=== PATIENT | female | born 1945 | race Caucasian/White ===

== ENCOUNTER 2019-08-05 09:57 | Outpatient (CLI) | payer MEDICARE, OTHER, SELFPAY ==
--- NOTE | 2019-08-05 10:03 | FL_ITS ---
WS: [id number] FL barium swallow modifd 24951 REASON FOR EXAM: Other dysphagia FLUOROSCOPY TIME: 3.5 minutes FINDINGS: Fluoroscopy was performed for speech pathologist. We see their workup for details. In the mid esophagus there appears to be thickening of the lamas of the esophagus and appears to be e sophageal ulcer present. 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
== END 2019-08-05 09:58 | disposition home or self-care (01) ==
LOC: RAD 09:58
PROVIDERS: PCP Family Medicine; Visit Provider Surgery
DX: R13.19 Other dysphagia (principal)
CPT/HCPCS: 74230; 92611

== ENCOUNTER 2019-08-06 08:47 | Day surgery (SDC) | payer MEDICARE, OTHER, SELFPAY ==
[2019-08-05 11:12] VITALS: BMI 24.3
[2019-08-06 09:27] VITALS: BP 138/67; PULSE 58; RESP 18; TEMP 36.8; O2SAT 99
[2019-08-06] MEDS: sodium chloride 0.9% 1,000 ML 30 ML IV (09:48)
--- NOTE | 2019-08-06 09:50 | ANES.PREANE2 ---
Pre-Anesthetic Assessment Pre-Anesthetic Assessment: Height/Weight: Height 1.7 m Weight 70.307 kg Temp Pulse Resp BP Pulse Ox 98.2 F 58 L 18 138/67 99 08/06/19 09:27 08/06/19 09:27 08/06/19 09:27 08/06/19 09:27 08/06/19 09:27 Preop Diagnosis: Epigastric pain and chronic GERD Proposed Procedure: Operation Date: 08/06/19 10:30 Proposed Procedures p EGD 10070 K21.9(Not Applicable) - Tanner Wilkinson MD Last intake: Intake Last Liquid Date 08/05/19 Last Liquid Time 20:00 Last Solid Date 08/05/19 Last Solid Time 20:00 Social: Social History: No alcohol and No tobacco Exam: Pre-Anes Outpt Exam: alert, oriented x 3, clear to auscultation bilaterally and regular rate & rhythm Airway: Submandibular: WNL Cervical ROM: Other (very limited) MP: 2 Dentition: Other (teeth good) History/ROS: No significant history except as noted Pulmonary: Pulmonary: None reported CV/HEM: CV/HEM: HTN : : None reported Hepatic: Hepatic: None reported GI: GI: GERD Metabolic: Metabolic: None reported Musc/skel: Musc/skel: Lower Back Pain and OA/DJD Neuropsych: Comments: olvin rivera Anesthetic Plan: ASA status: 3 Anesthesia: Anesthesia Evaluation and MAC Risk of > 500 ml blood loss (7ml/kg in children): No Meds/Allergies Current Medications: Current Medications Generic Name Dose Route Start Last Admin Trade Name Freq PRN Reason Stop Dose Admin Sodium Chloride 1,000 mls @ 30 ml s/hr 08/06/19 09:15 08/06/19 09:48 Sodium Chloride 0.9% IV 08/07/19 09:14 30 mls/hr .Q24H ORION Administration PFSH Anesthesia PFSH: Medical History Atrial fibrillation Chronic GERD Depression Dyspepsia Dysphagia Epigastric pain History of basal cell carcinoma (BCC) of skin Hypertension Surgical History H/O colonoscopy 2013 History of carpal tunnel release History of hysterectomy History of left knee replacement History of repair of rotator cuff Family History Father CAD (coronary artery disease) Brother CAD (coronary artery disease) Cancer 3 brothers-2 lung-1 small intestine Mother Hypertension Kidney stones Social History Smoking and tobacco status: never smoked Alcohol intake: never Data Anesthesia Cardiac Studies: No Data to Display
--- NOTE | 2019-08-06 11:18 | W.PM.OPSUD ---
Surgery/Procedure H&P Update DATE OF PROCEDURE: August 06, 2019 DATE H&P PERFORMED: 08/05/19 H&P UPDATE INFORMATION: I have reviewed H&P completed within last 30 days, I have examined patient prior to procedure and Changes to prior documentation as noted here (FINDINGS: Fluoroscopy was performed for speech pathologist. We see their workup for details. In the mid esophagus there appears to be thickening of the lamas of the esophagus and appears to be esophageal ulcer present. FL/FL barium swallow modifd [id number] IMPRESSION: Suspe) PREOP DIAGNOSIS: Epigastric pain and chronic GERD PRIMARY INDICATION FOR PROCEDURE: The same PLANNED PROCEDURE: Operation Date: 08/06/19 10:30 Proposed Procedures p EGD 46290 K21.9(Not Applicable) - Tanner Wilkinson MD
[2019-08-06 11:32] VITALS: BP 136/80; PULSE 68; RESP 16; TEMP 36.6; O2SAT 99
--- NOTE | 2019-08-06 11:35 | ANE.PACU2 ---
Inpatient post-anesthesia follow up: Airway intact: Yes Vital signs: Temperature 97.9 F Pulse Rate 68 Respiratory Rate 16 Blood Pressure 136/80 Pulse Oximetry 99 Oxygen Delivery Me thod Nasal Cannula Oxygen Flow Rate 3.0 Fraction of Inspir ed Oxygen Hydration adequate: Yes Nausea and vomiting: No Pain level: 1
[2019-08-07 09:02] LABS: H. Pylori / CLO Test Positive
== END 2019-08-06 11:55 | disposition home or self-care (01) ==
PROVIDERS: PCP Family Medicine; Visit Provider Surgery
PROC: 0DJ08ZZ Inspection of Upper Intestinal Tract, Via Natural or Artificial Opening Endoscopic (ICD-10-PCS; CPT 43235; principal; 2019-08-06 10:30)
DX: R10.13 Epigastric pain (principal); K21.9 Gastro-esophageal reflux disease without esophagitis; K29.70 Gastritis, unspecified, without bleeding; I10 Essential (primary) hypertension; M19.90 Unspecified osteoarthritis, unspecified site; I48.91 Unspecified atrial fibrillation
CPT/HCPCS: 12345; 43239; 87077; J2704

== ENCOUNTER 2019-08-11 08:36 | Outpatient (CLI) | payer MEDICARE, OTHER, SELFPAY ==
--- NOTE | 2019-08-11 08:45 | US_ITS ---
WS: [id number] RIGHT UPPER QUADRANT ULTRASOUND HISTORY: dyspepsia COMPARISON: None available. Liver: 13.4 cm in length. Normal size and echogenicity with no intrahepatic dilatation. No mass. Gallbladder: Normally distended gallbladder with no stones or wall thickening. CBD: 0.2 cm Pancreas: Normal size and echogenicity. Right kidney: 10.0 cm in length. Normal echogenicity with no mass or hydronephrosis. Aorta and IVC: Unremarkable. No ascites. US/US gall bladder [id number] IMPRESSION: Normal RIGHT upper quadrant ultrasound.
== END 2019-08-11 08:37 | disposition home or self-care (01) ==
LOC: US 08:37
PROVIDERS: PCP Family Medicine; Visit Provider Surgery
DX: R10.13 Epigastric pain (principal)
CPT/HCPCS: 76705

== ENCOUNTER 2019-09-04 07:18 | Outpatient (CLI) | payer MEDICARE, OTHER, SELFPAY ==
--- NOTE | 2019-09-04 08:00 | NM_ITS ---
WS: [id number] NUCLEAR MEDICINE HIDA SCAN CLINICAL INFORMATION: ABDOMINAL PAIN TECHNIQUE: Following intravenous administration of 7.9 mCi of technetium 99m mebrofenin, images of th e abdomen were obtained over the course of 60 minutes. Next, gallbladder ejection fraction was determ ined by obtaining preprandial and one-hour postprandial images of the gallbladder following oral zayra stion of Ensure. COMPARISON: None. FINDINGS: Normal hepatic uptake at 5 minutes. Gallbladder is visualized by 20 minutes. Normal hepatic excretion . No evidence of acute cholecystitis. Gallbladder ejection fraction 80% within normal limits. No evidence of chronic cholecystitis. NM/NM hepatobiliary w phar* [id number] IMPRESSION: 1. No evidence of acute or chronic cholecystitis. 2. Gallbladder ejection fraction 80%.
== END 2019-09-04 07:19 | disposition home or self-care (01) ==
PROVIDERS: PCP Family Medicine; Visit Provider Surgery
DX: R10.9 Unspecified abdominal pain (principal)
CPT/HCPCS: 78227; A9537

== ENCOUNTER → 2019-10-28 11:49 | Outpatient (BNVA) | payer MEDICARE, OTHER, SELFPAY | PROVIDERS: PCP Family Medicine; Visit Provider Nurse Practitioner Family | DX: U07.1 COVID-19 (principal) | CPT/HCPCS: 87635 ==

== ENCOUNTER 2021-07-24 23:20 | Emergency (ER) | payer OTHER, MEDICARE, SELFPAY ==
[2021-07-24 23:29] VITALS: BP 145/79; PULSE 81; RESP 16; TEMP 36.6; O2SAT 97; BMI 25.0
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
--- NOTE | 2021-07-25 00:01 | USR_ITS ---
PROCEDURE INFORMATION: Exam: US Duplex Left Lower Extremity Veins, Limited Exam date and time: 07/25/2021 12:08 AM Age: 76 years old Clinical indication: Pain; Swelling (edema) of limb; Lower extremity, left; Leg, lower; Prior surgery; Surgery date: 6+ months; Surgery type: Vascular reconstruction; Additional info: R/O dvt TECHNIQUE: Imaging protocol: Real-time Duplex ultrasound of the Left Lower Extremity with 2-D gonzalez scale, color Doppler flow and spectral waveform analysis with image documentation. Limited exam focused on the left lower extremity veins. COMPARISON: No relevant prior studies available. FINDINGS: Left deep veins: Unremarkable. The common femoral, femoral, proximal profunda femoral and popliteal veins are patent without thrombus. Normal Doppler waveforms. Normal compressibility and/or augmentation response. Patent calf veins. Left superficial veins: Unremarkable. Saphenofemoral junction is patent without thrombus. Distal great saphenous vein not visible. Possibly removed. Soft tissues: Unremarkable. US/CV venous duplex [facility] [id number] IMPRESSION: No evidence of left lower extremity deep vein thrombosis.
--- NOTE | 2021-07-25 00:51 | XRR_ITS ---
PROCEDURE INFORMATION: Exam: XR Chest Exam date and time: 07/25/2021 12:53 AM Age: 76 years old Clinical indication: Cough; Additional info: Cough, congestion TECHNIQUE: Imaging protocol: XR of the chest. Views: 1 view. COMPARISON: CT chest con [id number] 07/23/2017 3:14 PM FINDINGS: Lungs: Unremarkable. No consolidation. Pleural spaces: Unremarkable. No pleural effusion. No pneumothorax. Heart/Mediastinum: Unremarkable. No cardiomegaly. Bones/joints: Unremarkable. XR/XR chest 1V portable [id number] IMPRESSION: No acute findings.
[2021-07-25 01:42] VITALS: BP 130/82; PULSE 83; RESP 18; O2SAT 98
== END 2021-07-25 01:44 | disposition home or self-care (01) ==
PROVIDERS: Emergency Provider Nurse Practitioner Family; PCP Family Medicine
DX: M79.605 Pain in left leg (principal); M79.89 Other specified soft tissue disorders; Z98.890 Other specified postprocedural states; Z79.01 Long term (current) use of anticoagulants
CPT/HCPCS: 71045; 73552; 73590; 93971; 99283

== ENCOUNTER 2021-07-31 09:18 | Emergency (ER) | payer OTHER, MEDICARE, SELFPAY ==
[2021-07-31 09:25] VITALS: BP 126/89; PULSE 76; RESP 16; TEMP 36.6; O2SAT 97; BMI 25.0
--- NOTE | 2021-07-31 09:39 | XRR_ITS ---
PROCEDURE INFORMATION: Exam: XR Chest Exam date and time: 07/31/2021 9:54 AM Age: 76 years old Clinical indication: Cough; Additional info: Dyspnea/cough TECHNIQUE: Imaging protocol: XR of the chest. Views: 1 view. COMPARISON: CR (CHEST, ) 07/25/2021 12:53 AM FINDINGS: Lungs: Mild fibrotic changes are present in the lung bases. No acute pulmonary infiltrates. Pleural spaces: Unremarkable. No pleural effusion. No pneumothorax. Heart/Mediastinum: Unremarkable. No cardiomegaly. Bones/joints: Unremarkable. XR/XR chest 1V portable [id number] IMPRESSION: No acute abnormality.
--- NOTE | 2021-07-31 09:39 | CTR_ITS ---
PROCEDURE INFORMATION: Exam: CT Head Without Contrast Exam date and time: 07/31/2021 9:58 AM Age: 76 years old Clinical indication: Dizziness and visual disturbance and weakness, facial TECHNIQUE: Imaging protocol: Computed tomography of the head without contrast. Radiation optimization: All CT scans at this facility use at least one of these dose optimization techniques: automated exposure control; mA and/or kV adjustment per patient size (includes targeted exams where dose is matched to clinical indication); or iterative reconstruction. COMPARISON: XA FL barium swallow modifd [id number] 08/05/2019 10:30 AM RADIATION DOSE METRICS: Total DLP (mGy-cm): 734.23 FINDINGS: Brain: Normal. No hemorrhage. Unremarkable white matter. No mass effect. Cerebral ventricles: No ventriculomegaly. Paranasal sinuses: Visualized sinuses are unremarkable. No fluid levels. Mastoid air cells: Visualized mastoid air cells are well aerated. Bones/joints: Unremarkable. No acute fracture. Soft tissues: Unremarkable. CT/CT head wo con* [id number] IMPRESSION: No acute intracranial abnormality.
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
--- NOTE | 2021-07-31 10:26 | ECG_ITS ---
[facility] Test Date: 2021-07-31 Pat Name: Kacy Arroyo Department: Room: Gender: Female Seam Stay Stitcher: : 1945 Requested By: Andrews Liu Order Number: [id number] Syed MD: Dave Christianson M.D. Measurements Intervals [place] Rate: 69 P: 63 [place]: 171 QRS: 55 QRSD: 81 T: 65 QT: 370 QTc: 399 Interpretive Statements SINUS RHYTHM POSSIBLE RIGHT VENTRICULAR CONDUCTION DELAY [RSR (QR) IN V1/V2] Compared to ECG 04/02/2015 10:33:31 Incomplete right bundle-branch block no longer present Electronically Signed On 07-31-2021 21:13:09 CDT by Dave Christianson M.D. [email or web address] centerIsis Parentingselect medical specialty [facility], inc.[employer]/store/[id number]
[2021-07-31 10:33] LABS: Basophils # 0.1 10^3/uL (0.0-0.1); Basophils % 0.7 %; Eosinophils # 0.1 10^3/uL (0.0-0.8); Eosinophils % 1.5 %; Hematocrit 28.2 % (37.0-47.0); Lymphocytes # 0.7 10^3/uL (0.8-4.8); Lymphocytes % 10.6 %; Mean Corpuscular HGB Conc 31.9 g/dL (30.0-36.0); Mean Corpuscular Hemoglobin 30.4 pg (28.0-34.0); Mean Corpuscular Volume 95.3 fl (81-99); Mean Platelet Volume 10.3 fL (7.4-10.4); Monocytes # 0.7 10^3/uL (0.2-0.9); Monocytes % 10.5 %; Neutrophils # 5.09 10^3/uL (1.8-7.7); Neutrophils % 76.3 %; Nucleated Red Blood Cells % 0 %; Platelet Count 453 10^3/cmm (130-400); Red Blood Count 2.96 10^6/uL (4.1-5.3); Red Cell Distribution Width 14.2 % (12.1-15.1); White Blood Count 6.7 10^3/uL (4.0-10.0)
[2021-07-31 10:55] VITALS: BP 117/61; PULSE 75; RESP 16; O2SAT 100
--- NOTE | 2021-07-31 11:00 | PC.NURSE ---
EKG done at 1050 and shown to ER doctor
[2021-07-31 11:01] LABS: Alanine Aminotransferase 8 U/L (0-33); Albumin Level 3.6 g/dL (3.5-5.2); Alkaline Phosphatase 121 IU/L (35-105); Aspartate Amino Transferase 18 U/L (0-32); Blood Urea Nitrogen 21 mg/dL (8-23); Calcium 8.7 mg/dL (8.5-10.5); Carbon Dioxide 23 mmol/L (22-29); Chloride 101 mmol/L (98-107); Globulin 3.3 g/dL (1.3-4.6); Glucose 94 mg/dL (65-115); Osmolality Calculated 287 mOsm/kg (285-295); Sodium 137 mmol/L (136-145); Total Bilirubin 0.6 mg/dL (0.15-1.2); Total Protein 6.9 g/dL (6.6-8.7)
[2021-07-31 11:07] LABS: Anion Gap 17.2 (5-19); Potassium 4.2 mmol/L (3.5-5.1)
[2021-07-31 11:20] LABS: Add Urine Microscopic? NO; Charge for UA Resulting for Rev
[2021-07-31 11:34] LABS: Specific Gravity, Urine 1.015 (1.005-1.030); Urine Appearance Clear (CLEAR); Urine Color Yellow (Yellow); pH Urine 6 (5-7)
[2021-07-31 11:35] LABS: Bilirubin Urine Neg (Negative); Blood Urine Neg (Negative); Glucose Urine UA Norm (Normal); Ketones Urine Negative (Negative); Leukocyte Esterase Urine Negative (Negative); Nitrate Urine Negative (Negative); Protein Urine Neg (Negative); Urobilinogen Urine Norm (Negative)
[2021-07-31 12:30] VITALS: BP 115/71; BP 126/53; BP 129/62; PULSE 104; PULSE 75; PULSE 96
[2021-07-31 13:16] VITALS: BP 138/52; PULSE 75; RESP 17; O2SAT 98
== END 2021-07-31 13:17 | disposition home or self-care (01) ==
PROVIDERS: Emergency Provider Family Medicine; PCP Family Medicine
DX: R53.1 Weakness (principal); D64.9 Anemia, unspecified; H53.9 Unspecified visual disturbance; S72.92XD Unspecified fracture of left femur, subsequent encounter for closed fracture with routine healing; V89.2XXD Person injured in unspecified motor-vehicle accident, traffic, subsequent encounter; Z79.82 Long term (current) use of aspirin; Z79.01 Long term (current) use of anticoagulants; Z98.890 Other specified postprocedural states
CPT/HCPCS: 70450; 71045; 80053; 81003; 85025; 93005; 99284

== ENCOUNTER → 2021-08-25 12:46 | Outpatient (BNVA) | payer MEDICARE, OTHER, SELFPAY | PROVIDERS: PCP Family Medicine; Visit Provider Family Medicine | DX: I95.9 Hypotension, unspecified (principal); R53.83 Other fatigue; E34.9 Endocrine disorder, unspecified | CPT/HCPCS: 80053; 83880; 85025; 85651; 86140 ==

== ENCOUNTER → 2021-09-19 09:33 | Outpatient (BNVA) | payer MEDICARE, OTHER, SELFPAY | PROVIDERS: PCP Family Medicine; Visit Provider Family Medicine | DX: K21.9 Gastro-esophageal reflux disease without esophagitis (principal); R50.9 Fever, unspecified; R13.10 Dysphagia, unspecified; E34.9 Endocrine disorder, unspecified; Z20.828 Contact with and (suspected) exposure to other viral communicable diseases; Z85.828 Personal history of other malignant neoplasm of skin | CPT/HCPCS: 84703 ==

== ENCOUNTER 2021-10-17 10:44 | Outpatient (CLI) | payer MEDICARE, OTHER, SELFPAY ==
--- NOTE | 2021-10-17 10:52 | MM_ITS ---
WS: [id number] BILATERAL SCREENING DIGITAL TOMOSYNTHESIS MAMMOGRAM WITH CAD HISTORY: SCREENING COMPARISON: 04/13/2017 and 05/19/2015 Bilateral CC and MLO views with tomosynthesis and synthetic mammography submitted. Computer aided det ection analyzed. Breast composition: The breasts are heterogeneously dense, which may obscure small masses. No suspici ous masses, microcalcifications or architectural distortion. Benign coarse calcifications in each dmitriy ast. MM/[place] [id number] IMPRESSION: BI-RADS: 2-Benign FOLLOW UP: 1 Year Follow-up
== END 2021-10-17 10:45 | disposition home or self-care (01) ==
PROVIDERS: PCP Family Medicine; Visit Provider Family Medicine
DX: Z12.31 Encounter for screening mammogram for malignant neoplasm of breast (principal)
CPT/HCPCS: 77063; 77067

== ENCOUNTER 2021-10-25 11:31 | Outpatient (CLI) | payer MEDICARE, OTHER, SELFPAY ==
--- NOTE | 2021-10-25 11:30 | FL_ITS ---
WS: [id number] MODIFIED BARIUM SWALLOW HISTORY: Other dysphagia FLUOROSCOPY TIME: 1min [id number] # of spot films: 1 Modified barium swallow was performed by the speech pathologist. Fluoroscopy was provided with the pa tient in a lateral projection. Multiple food consistencies were provided. Patient swallowed all food consistencies without difficulty. No aspiration or laryngeal penetration. Barium tablet was swallowed without difficulty. FL/FL barium swallow modifd [id number] IMPRESSION: Negative modified swallowing examination. Please see speech therapist report also for recommendations.
== END 2021-10-25 11:32 | disposition home or self-care (01) ==
LOC: RAD 11:32
PROVIDERS: PCP Family Medicine; Visit Provider Family Medicine
DX: R13.10 Dysphagia, unspecified (principal)
CPT/HCPCS: 74230; 92611

== ENCOUNTER 2021-10-26 07:30 | Outpatient (RCR) | payer MEDICARE, OTHER, SELFPAY | END 2021-11-18 23:59 | disposition home or self-care (01) | LOC: SPT 07:30 | PROVIDERS: PCP Family Medicine; Visit Provider Student in an Organized Health Care Education/Training Program | DX: M97.02XA Periprosthetic fracture around internal prosthetic left hip joint, initial encounter (principal); M21.372 Foot drop, left foot; Z47.89 Encounter for other orthopedic aftercare | CPT/HCPCS: 97032; 97110; 97161 ==

== ENCOUNTER 2021-11-19 06:00 | Outpatient (RCR) | payer MEDICARE, OTHER, SELFPAY | END 2021-12-19 23:59 | disposition home or self-care (01) | LOC: SPT 06:00 | PROVIDERS: PCP Family Medicine; Visit Provider Student in an Organized Health Care Education/Training Program | DX: M21.372 Foot drop, left foot (principal); Z47.89 Encounter for other orthopedic aftercare; Z96.652 Presence of left artificial knee joint | CPT/HCPCS: 97032; 97110; 97116 ==

== ENCOUNTER 2021-12-20 06:00 | Outpatient (RCR) | payer MEDICARE, OTHER, SELFPAY | END 2022-01-18 23:59 | disposition home or self-care (01) | LOC: SPT 06:00 | PROVIDERS: PCP Family Medicine; Visit Provider Student in an Organized Health Care Education/Training Program | DX: M21.372 Foot drop, left foot (principal) | CPT/HCPCS: 97110; 97116 ==

== ENCOUNTER 2021-12-21 16:25 | Outpatient (CLI) | payer MEDICARE, OTHER, SELFPAY ==
--- NOTE | 2021-12-21 17:00 | CT_ITS ---
WS: [id number] CT scan of the chest without IV contrast, additional two-dimensional coronal and sagittal reconstruct ion was performed. 12/21/2021 Clinical Data: f/u on lymphadenopath from CT 3 months ago at [facility] Comparison: CT chest, 07/23/2017 DLP: 612.[address] scans at [facility] use at least one of these dose optimization techniques: automated e xposure control; mA and/or kV adjustment per patient size (includes targeted exams where dose is matc hed to clinical indication); or iterative reconstruction. Findings: No nodules, masses or effusions are seen. No acute pneumonia is seen. The lower lobes show bullous em physema. There is hyperinflation. The heart size is normal with no pericardial effusion. The pulmonar y arterial system and thoracic aorta demonstrate no abnormalities or dilatations. The trachea bifurca manjinder normally into the bronchi. There is no axillary or significant mediastinal adenopathy. The middle mediastinal lymph nodes have not changed in size or number compared to the prior CT chest. The upper abdomen has not changed from the prior study. There are cysts in the liver. The visualized gallbladder, spleen, pancreas, adrenal glands and superior poles of the kidneys are not remarkable. T he thoracic spine shows mild osteoarthritic change CT/CT chest wo con [id number] Impression: 1. Hyperinflation with lower lobe bullous emphysema. 2. No significant mediastinal or axillary adenopathy.
== END 2021-12-21 16:26 | disposition home or self-care (01) ==
LOC: RAD 16:26
PROVIDERS: PCP Family Medicine; Visit Provider Family Medicine
DX: R59.1 Generalized enlarged lymph nodes (principal); J43.9 Emphysema, unspecified
CPT/HCPCS: 71250

== ENCOUNTER 2022-01-19 06:00 | Outpatient (RCR) | payer MEDICARE, OTHER, SELFPAY | END 2022-02-06 16:07 | disposition home or self-care (01) | LOC: SPT 06:00 | PROVIDERS: PCP Family Medicine; Visit Provider Student in an Organized Health Care Education/Training Program | DX: Z96.652 Presence of left artificial knee joint (principal); Z47.89 Encounter for other orthopedic aftercare; M21.372 Foot drop, left foot | CPT/HCPCS: 97110 ==

== ENCOUNTER 2022-02-19 06:00 | Outpatient (RCR) | payer MEDICARE, OTHER, SELFPAY | END 2022-03-21 23:59 | disposition home or self-care (01) | LOC: SPT 06:00 | PROVIDERS: PCP Family Medicine; Visit Provider Student in an Organized Health Care Education/Training Program | DX: S72.042D Displaced fracture of base of neck of left femur, subsequent encounter for closed fracture with routine healing (principal); X58.XXXD Exposure to other specified factors, subsequent encounter; R53.1 Weakness; R26.89 Other abnormalities of gait and mobility | CPT/HCPCS: 97110; 97161 ==

== ENCOUNTER 2022-03-22 06:00 | Outpatient (RCR) | payer MEDICARE, OTHER, SELFPAY | END 2022-04-18 23:59 | disposition home or self-care (01) | LOC: SPT 06:00 | PROVIDERS: PCP Family Medicine; Visit Provider Student in an Organized Health Care Education/Training Program | DX: S72.042D Displaced fracture of base of neck of left femur, subsequent encounter for closed fracture with routine healing (principal); X58.XXXD Exposure to other specified factors, subsequent encounter | CPT/HCPCS: 97110; 97150; 97530 ==

== ENCOUNTER 2022-04-19 06:00 | Outpatient (RCR) | payer MEDICARE, OTHER, SELFPAY | END 2022-05-04 23:59 | disposition home or self-care (01) | LOC: SPT 06:00 | PROVIDERS: PCP Family Medicine; Visit Provider Student in an Organized Health Care Education/Training Program | DX: S72.042D Displaced fracture of base of neck of left femur, subsequent encounter for closed fracture with routine healing (principal); X58.XXXD Exposure to other specified factors, subsequent encounter; R53.1 Weakness; R26.89 Other abnormalities of gait and mobility | CPT/HCPCS: 97110 ==

== ENCOUNTER 2022-05-23 16:12 | Inpatient (IN) | payer MEDICARE, OTHER, SELFPAY ==
[2022-05-23] VITALS (8 sets, daily range): BP systolic 135–210; BP diastolic 55–136; PULSE 64–76; RESP 13–18; TEMP 36.8; O2SAT 99–100; BMI 24.3
--- NOTE | 2022-05-23 16:20 | W.ED.FALL ---
HPI - Fall General: Chief Complaint: Fall Stated Complaint: FALL/ R ARM DEFORMITY Time Seen by Provider: 05/23/22 16:20 Source: patient Mode of arrival: EMS History of Present Illness: 77-year-old female who presents to the emergency room complaining of shoulder pain after a fall. Patient had gotten up from a chair and stumbled and fell forward landed on an outstretched right arm. She had immediate pain was unable to move the arm EMS was called and left the arm in a position of comfort. I confirmed with the medic in the field they had good pulses and she was able to move her fingers. When I came into the room she had a cold pulseless arm it was in the same position that the medics had left it suspect that the swelling in the intermediate had compromised her pulse. We emergently sedated the patient and attempted reduction see the notes below. She denies striking her head denies any other injuries besides the arm. She is not on any anticoagulants. She does take an aspirin daily. complaint: fall Onset (ago): minute(s) Fall from: standing Place fall occurred: home Loss of consciousness: None Prolonged down time: no Location of injury - extremities: Right: shoulder Quality: sharp Associated symptoms-after fall: Denies abdominal pain, chest pain, headache(s), lightheadedness, neck pain, numbness, short of breath or weakness Review of Systems Const: Denies: fever(s), chills, body aches, change in appetite, fatigue or malaise Card: Denies: chest pain or lightheadedness Resp: Denies: dyspnea, productive cough or non-productive cough GI: Denies: abdominal pain, nausea or vomiting : Denies: dysuria, urinary frequency or urinary urgency Musc: Denies: neck pain or back pain Neuro: Reports: numbness in extremities; Denies: headache(s), frequent falls or Slurred speech present PFS ED PFSH: Medical History (Updated 05/24/22 @ 11:48 by Andrews Guevara DO) Atrial fibrillation Chronic GERD Depression Dyspepsia Dysphagia Epigastric pain History of basal cell carcinoma (BCC) of skin History of nonmelanoma skin cancer Hypertension Surgical History (Updated 05/23/22 @ 20:58 by Chey Boo MD) H/O colonoscopy 2013 History of carpal tunnel release History of colonoscopy with polypectomy (~08/2019) History of esophagogastroduodenoscopy (EGD) (~08/2019) History of esophagogastroduodenoscopy (EGD) (~2013) History of hysterectomy History of left knee replacement History of repair of rotator cuff Family History Father CAD (coronary artery disease) Brother CAD (coronary artery disease) Cancer 3 brothers-2 lung-1 small intestine Mother Hypertension Kidney stones Social History Smoking and tobacco status: never smoked Alcohol intake: never Physical Exam Const: COMMON NORMALS: no acute distress GENERAL APPEARANCE: cooperative and comfortable ORIENTATION/CONSCIOUSNESS: Yes awake, Yes oriented to person, Yes oriented to place and Yes oriented to time HENMT: COMMON NORMALS: normocephalic, atraumatic and hearing grossly normal bilaterally HEAD & SCALP: normocephalic and atraumatic Resp: COMMON NORMALS: normal respiratory effort, No retractions, No use of accessory muscles and clear to auscultation bilaterally AUSCULTATION: clear to auscultation bilaterally Cardio: COMMON NORMALS: regular rate, regular rhythm and No murmurs present (Cardio) RATE: regular rate RHYTHM: regular rhythm GI: COMMON NORMALS: Soft to palpation and No hepatosplenomegaly present AUSCULTATION: Yes normoactive bowel sounds PALPATION: Yes Soft to palpation, No Tenderness to palpation present (GI), No Guarding due to palpation present (GI) and Yes No hepatosplenomegaly present Extremity: OTHER: Right arm is in AB ducted and externally rotated position when I arrived in the room the hand is cyanotic and there are no pulses at radial or ulnar arteries. See notes below after etomidate for conscious sedation arm was reduced in anatomical position and had good relief return of pulses and capillary refill cyanosis resolved. Neuro: SENSORIUM/ORIENTATION: Yes oriented to person, Yes oriented to place and Yes oriented to time Skin: COMMON NORMALS: no rashes or lesions noted GENERAL SKIN EXAM: no rashes or lesions noted Procedures Orthopedic Joint Reduction Joint #1: Time Out Performed: Yes Side: right Joint Reduction Location: shoulder Analgesia: procedural sedation Shoulder Technique Used (if applicable): traction/counter-traction Technique used: traction/counter-traction Post-reduction neuro exam: intact Post-reduction vascular: intact Post Reduction X-Ray Obtained: Yes Post Reduction X-Ray Results: not reduced Splint Applied: Yes Patient Tolerated Procedure: well Additional Comments: Fracture at the anatomical neck. The head of the humerus and the shaft are now after attempt to reduce. Humeral head is still out of position see notes below Procedural Sedation Indication: fracture/dislocation reduction ASA Class: I Preparation: monitoring tech applied, pulse oximeter, supplemental O2 applied, suction/airway equipment at bedside and IV secured Fentanyl: IV Fentanyl dose (mcg): 50 Midazolam dose (mg): 2 (Patient given 2.5 mg EMR will not allow that) IV Etomidate dose (mg): 10 Patient Tolerated Procedure: well Complications: hypoxia Interventions: oxygen applied and airway repositioned Additional Comments: Verbal consent at the bedside obtained because patient had a pulseless cold limb. Patient gave verbal consent with nurse present. Initially given etomidate were able to reduce and achieve pulses. Then proceeded with fentanyl and Versed to attempt to reduce the dislocation. See notes Course Vital Signs: Vital signs: Vital Signs Temperature 98.3 F 05/24/22 08:28 Pulse Rate 69 05/24/22 08:28 Respiratory Rate 18 05/24/22 11:29 Blood Pressure 169/71 05/24/22 08:28 Pulse Oximetry 99 05/24/22 08:28 Oxygen Delivery Me thod 05/24/22 08:28 Oxygen Flow Rate 2 05/24/22 08:00 MDM - Fall Medical Decision Making When she first arrived she had a pulseless cold limb with no capillary refill confirmed with the medics initially in the field she did have pulses. Patient had increasing pain and discomfort verbal consent obtained for conscious sedation. The patient agreed. Etomidate given 10 mg were able to move the arm to an anatomical position which immediately returned her pulses and capillary refill. X-ray was done confirmed showed anatomical neck fracture and distal anterior dislocation. Patient developed some transient hypoxia which was resolved with airway repositioning. Once she had improved she was given Versed and fentanyl which she tolerated well and we attempted to apply traction countertraction to reduce the fracture. Unable to reduce the fracture. We did feel like we might of gotten it however on repeat x-ray it shows that the humeral shaft and the humeral head are no longer in position with each other. Discussed with Dr. Tapia. Patient will require shoulder arthroplasty. Medical Records I reviewed the patient's medical records. Lab Data I reviewed the patient's lab results. 05/24/22 05:29 05/24/22 05:29 Radiology Impressions Shoulder X-Ray 05/23/22 16:47 IMPRESSION: Right glenohumeral joint dislocation with complete fracture through the abdomen neck of the humerus with displacement of the articular surface of the humeral head. Additional comminuted fracture of the greater tuberosity humerus and probable nondisplaced fracture through the surgical neck of the humerus are noted. Chest X-Ray 05/23/22 17:55 IMPRESSION: 1. Mild bibasilar opacity is present, consistent with atelectasis, edema, or pneumonia. 2. Comminuted fracture of the proximal right humerus with dislocation of the right humeral head is again identified. Laboratory Results WBC 10.4 10^3/uL (4.0-10.0) H 05/23/22 18:07 RBC 4.09 10^6/uL (4.1-5.3) L 05/23/22 18:07 Hgb 12.3 g/dL (11.5-15.3) 05/23/22 18:07 Hct 38.4 % (37.0-47.0) 05/23/22 18:07 MCV 93.9 fl (81-99) 05/23/22 18:07 MCH 30.1 pg (28.0-34.0) 05/23/22 18:07 MCHC 32.0 g/dL (30.0-36.0) 05/23/22 18:07 RDW 12.7 % (12.1-15.1) 05/23/22 18:07 Plt Count 212 10^3/cmm (130-400) 05/23/22 18:07 MPV 9.8 fL (7.4-10.4) 05/23/22 18:07 Neut % (Auto) 85.3 % 05/23/22 18:07 Lymph % (Auto) 6.4 % 05/23/22 18:07 [place] % (Auto) 6.9 % 05/23/22 18:07 Eos % (Auto) 0.2 % 05/23/22 18:07 Baso % (Auto) 0.6 % 05/23/22 18:07 Neut # (Auto) 8.88 10^3/uL (1.8-7.7) H 05/23/22 18:07 Lymph # (Auto) 0.7 10^3/uL (0.8-4.8) L 05/23/22 18:07 [place] # (Auto) 0.7 10^3/uL (0.2-0.9) 05/23/22 18:07 Eos # (Auto) 0.0 10^3/uL (0.0-0.8) 05/23/22 18:07 Baso # (Auto) 0.1 10^3/uL (0.0-0.1) 05/23/22 18:07 Nucleated RBC % (auto) 0 % 05/23/22 18:07 Nucleated RBCs # 0.0 /100WBC 05/23/22 18:07 Sodium 142 mmol/L (136-145) 05/23/22 18:07 Potassium 3.8 mmol/L (3.5-5.1) 05/23/22 18:07 Chloride 103 mmol/L (98-107) 05/23/22 18:07 Carbon Dioxide 28 mmol/L (22-29) 05/23/22 18:07 Anion Gap 14.8 (5-19) 05/23/22 18:07 BUN 16 mg/dL (8-23) 05/23/22 18:07 Creatinine 0.8 mg/dL (0.5-0.9) 05/23/22 18:07 GFR Calculation Not Reportable 05/23/22 18:07 Glucose 117 mg/dL (65-115) H 05/23/22 18:07 Estimat Average Glucose 100 05/23/22 18:07 Hemoglobin A1c 5.1 % (4.0-6.0) 05/23/22 18:07 Calculated Osmolality 296 mOsm/kg (285-295) H 05/23/22 18:07 Calcium 8.5 mg/dL (8.5-10.5) 05/23/22 18:07 Total Bilirubin 0.4 mg/dL (0.15-1.2) 05/23/22 18:07 AST 20 U/L (0-32) 05/23/22 18:07 ALT 13 U/L (0-33) 05/23/22 18:07 Alkaline Phosphatase 101 U/L (35-105) 05/23/22 18:07 Total Protein 7.0 g/dL (6.6-8.7) 05/23/22 18:07 Albumin 4.3 g/dL (3.5-5.2) 05/23/22 18:07 Globulin 2.7 g/dL (1.3-4.6) 05/23/22 18:07 Vitamin B12 351 pg/mL (232-1245) 05/23/22 18:07 Urine Color Yellow (Yellow) 05/23/22 18:31 Urine Appearance Clear (CLEAR) 05/23/22 18:31 Urine pH 8 (5-7) H 05/23/22 18:31 Ur Specific [place] 1.010 (1.005-1.030) 05/23/22 18:31 Urine Protein Neg (Negative) 05/23/22 18:31 Urine Glucose (UA) Norm (Normal) 05/23/22 18:31 Urine Ketones Negative (Negative) 05/23/22 18:31 Urine Blood Neg (Negative) 05/23/22 18:31 Urine Nitrate Negative (Negative) 05/23/22 18:31 Urine Bilirubin Neg (Negative) 05/23/22 18:31 Prot Sulfosalicylic Acd Negative (Negative) 05/23/22 18:31 Urine Urobilinogen Neg mg/dL (Negative) 05/23/22 18:31 Ur Leukocyte Esterase Negative (Negative) 05/23/22 18:31 Discharge Plan Discharge Patient Disposition: Admitted As Inpatient Admit Provider: Gia Bermeo Clinical Impression: Right humeral fracture, Dislocation of shoulder region Condition: Stable Coding Level of Care Code ED [place] Line Attendant for [place] Mendosa
--- NOTE | 2022-05-23 16:47 | XRR_ITS ---
PROCEDURE INFORMATION: Exam: XR Right Shoulder Exam date and time: 05/23/2022 4:34 PM Age: 77 years old Clinical indication: Injury or trauma; Fall; Blunt trauma (contusions or hematomas); Shoulder; Right TECHNIQUE: Imaging protocol: Radiologic exam of the right shoulder. Views: 2 or more views. COMPARISON: CT chest con [id number] 12/21/2021 4:40 PM FINDINGS: Bones/joints: There is an anterior glenohumeral joint dislocation. There is a fracture through the anatomic neck of the humerus with dislocation of the articular surface of the humeral head. There is a comminuted fracture of the greater tuberosity humerus and probable nondisplaced fracture of the surgical neck of the humerus. No acute fracture of the scapula. The visualized ribs are intact. Acromioclavicular joint alignment is intact. Soft tissues: There is soft tissue edema adjacent to the shoulder. XR/XR shoulder RT min 2V* [id number] IMPRESSION: Right glenohumeral joint dislocation with complete fracture through the abdomen neck of the humerus with displacement of the articular surface of the humeral head. Additional comminuted fracture of the greater tuberosity humerus and probable nondisplaced fracture through the surgical neck of the humerus are noted.
[2022-05-23] MEDS: midazolam 1 mg/mL INJ 2 mL 5 MG IVP (16:57)
[2022-05-23] MEDS: etomidate 2 mg/mL INJ SDV 10 mL 10 MG IVP (16:57)
[2022-05-23] MEDS: fentaNYL 50 mcg/mL INJ 2mL 100 MCG IVP (16:58)
[2022-05-23] MEDS: promethazine 25 mg/mL SDV 1 mL IM (17:06)
--- NOTE | 2022-05-23 17:55 | XRR_ITS ---
PROCEDURE INFORMATION: Exam: XR Chest Exam date and time: 05/23/2022 6:11 PM Age: 77 years old Clinical indication: Cough and dyspnea; Additional info: Dyspnea/cough TECHNIQUE: Imaging protocol: Radiologic exam of the chest. Views: 1 view. COMPARISON: CT chest con [id number] 12/21/2021 4:40 PM FINDINGS: Lungs: The lungs are hyperinflated. Mild bibasilar opacity is present, consistent with atelectasis, edema, or pneumonia. Pulmonary vascularity is within normal limits. Pleural spaces: Unremarkable. No pleural effusion. No pneumothorax. Heart/Mediastinum: Unremarkable. No cardiomegaly. Bones/joints: Comminuted fracture of the proximal right humerus with dislocation of the right humeral head is again identified. XR/XR chest 1V portable [id number] IMPRESSION: 1. Mild bibasilar opacity is present, consistent with atelectasis, edema, or pneumonia. 2. Comminuted fracture of the proximal right humerus with dislocation of the right humeral head is again identified.
--- NOTE | 2022-05-23 18:00 | ECG_ITS ---
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 Measurements Intervals [place] Rate: 63 P: 150 DE: 187 QRS: -20 QRSD: 77 T: 149 QT: 395 QTc: 407 Interpretive Statements ECTOPIC ATRIAL RHYTHM POSSIBLE LEFT ATRIAL ENLARGEMENT [-0.1mV P-WAVE IN V1/V2] LOW QRS VOLTAGE [QRS DEFLECTION < 0.5/1.0 mV IN LIMB/CHEST LEADS] POSSIBLE RIGHT VENTRICULAR CONDUCTION DELAY [RSR (QR) IN V1/V2] POSSIBLE ANTERIOR MYOCARDIAL INFARCTION , OF INDETERMINATE AGE [30 ms Q WAVE IN V3/V4, OR R < 0.2 mV IN V4] INFERIOR MYOCARDIAL INFARCTION , PROBABLY OLD [40+ ms Q WAVE AND/OR ST/T ABNORMALITY IN II/aVF] Compared to ECG 07/31/2021 10:47:39 Ectopic atrial rhythm now present Low QRS voltage now present Myocardial infarct finding now present Sinus rhythm no longer present Electronically Signed On 05-24-2022 8:07:47 CDT by Jesus Barajas M.D. [id number]
[2022-05-23 18:19] LABS: Basophils # 0.1 10^3/uL (0.0-0.1); Basophils % 0.6 %; Eosinophils % 0.2 %; Hematocrit 38.4 % (37.0-47.0); Hemoglobin 12.3 g/dL (11.5-15.3); Lymphocytes # 0.7 10^3/uL (0.8-4.8); Lymphocytes % 6.4 %; Mean Corpuscular Hemoglobin 30.1 pg (28.0-34.0); Mean Corpuscular Volume 93.9 fl (81-99); Mean Platelet Volume 9.8 fL (7.4-10.4); Monocytes # 0.7 10^3/uL (0.2-0.9); Monocytes % 6.9 %; Neutrophils # 8.88 10^3/uL (1.8-7.7); Neutrophils % 85.3 %; Nucleated Red Blood Cells % 0 %; Platelet Count 212 10^3/cmm (130-400); Red Blood Count 4.09 10^6/uL (4.1-5.3); Red Cell Distribution Width 12.7 % (12.1-15.1); White Blood Count 10.4 10^3/uL (4.0-10.0)
[2022-05-23 18:36] LABS: Alanine Aminotransferase 13 U/L (0-33); Albumin Level 4.3 g/dL (3.5-5.2); Alkaline Phosphatase 101 U/L (35-105); Anion Gap 14.8 (5-19); Aspartate Amino Transferase 20 U/L (0-32); Blood Urea Nitrogen 16 mg/dL (8-23); Calcium 8.5 mg/dL (8.5-10.5); Carbon Dioxide 28 mmol/L (22-29); Chloride 103 mmol/L (98-107); Globulin 2.7 g/dL (1.3-4.6); Glucose 117 mg/dL (65-115); Osmolality Calculated 296 mOsm/kg (285-295); Potassium 3.8 mmol/L (3.5-5.1); Sodium 142 mmol/L (136-145); Total Bilirubin 0.4 mg/dL (0.15-1.2)
[2022-05-23 18:59] LABS: Add Urine Microscopic? NO; Charge for UA Resulting for Rev
[2022-05-23 19:16] LABS: Bilirubin Urine Neg (Negative); Blood Urine Neg (Negative); Glucose Urine UA Norm (Normal); Ketones Urine Negative (Negative); Leukocyte Esterase Urine Negative (Negative); Nitrate Urine Negative (Negative); Protein Urine Neg (Negative); Sulfosalicylic Acid Urine Negative (Negative); Urine Appearance Clear (CLEAR); Urine Color Yellow (Yellow); Urobilinogen Urine Neg (Negative); pH Urine 8 (5-7)
--- NOTE | 2022-05-23 20:20 | PM.HP ---
Providers/Chief Complaint Admitting Physician: Gia Bermeo MD Primary Care Provider: Oswaldo Streeter MD Chief Complaint: FALL/ R ARM DEFORMITY History of Present Illness Kacy Arroyo is a 77 year old female who carries a history of atrial fibrillation, currently on aspirin, presented today after sustaining a fall. Patient is stating that she was trying get up from a chair when her foot got stuck and she fell diving forwards on her right shoulder. She was experiencing excruciating pain that prompted her visit to the ER. In the ER her right arm were cyanotic, she was diagnosed with complete humeral fracture which was reduced by the ER physician which improved her cyanosis. Her upper extremities are warm. She has good hemodynamic parameters at the time of my evaluation doing well on room air. Complaining of moderate pain in her right shoulder. Patient is denying chest pain, palpitations, nausea, vomiting or diarrhea. She lives alone takes care of her daily activities on her own. In July last year she had left knee surgery in [place]. No previous history of coronary artery disease DE or CHF. Review of Systems Const: Denies: fever(s) Eyes: Denies: change in vision ENMT: Denies: throat pain Card: Denies: chest pain Resp: Denies: dyspnea GI: Denies: abdominal pain : Denies: flank pain Musc: Reports: extremity pain, extremity swelling, joint pain, joint swelling and joint stiffness Neuro: Reports: weakness in extremities; Denies: numbness in extremities Psych: Denies: anxiety Endo: Denies: polyuria Medications/Allergies Home Medications Medication Instructions Recorded Confirmed Last Taken Type aspirin 81 mg chewable tablet 81 mg PO BEDTIME 07/22/19 05/23/22 05/22/22 History famotidine 20 mg tablet (Pepcid) 20 mg PO BID 07/22/19 05/23/22 05/23/22 History triamcinolone acetonide 0.1 % 1 applic topical BID #30 grams 04/08/20 05/23/22 Unknown Rx topical ointment clotrimazole 1 % topical cream 1 applic topical BID #30 grams 06/06/21 05/23/22 Unknown Rx cetirizine 10 mg tablet 10 mg PO BEDTIME 05/23/22 05/23/22 05/22/22 History cholecalciferol (vitamin D3) 50 50 mcg PO DAILY 05/23/22 05/23/22 05/22/22 History mcg (2,000 unit) capsule (Vitamin D3) fluoxetine 40 mg capsule 20 mg PO DAILY 05/23/22 05/23/22 05/23/22 History Allergies Allergy/AdvReac Type Severity Reaction Status Date / Time ondansetron [From Zofran] Allergy Unknown Verified 09/14/21 13:44 PFSH Acute PFSH: Medical History (Updated 05/23/22 @ 20:58 by Chey Boo MD) Atrial fibrillation Chronic GERD Depression Dyspepsia Dysphagia Epigastric pain History of basal cell carcinoma (BCC) of skin History of nonmelanoma skin cancer Hypertension Surgical History (Updated 05/23/22 @ 20:58 by Chey Boo MD) H/O colonoscopy 2013 History of carpal tunnel release History of colonoscopy with polypectomy (~08/2019) History of esophagogastroduodenoscopy (EGD) (~08/2019) History of esophagogastroduodenoscopy (EGD) (~2013) History of hysterectomy History of left knee replacement History of repair of rotator cuff Family History Father CAD (coronary artery disease) Brother CAD (coronary artery disease) Cancer 3 brothers-2 lung-1 small intestine Mother Hypertension Kidney stones Social History Smoking and tobacco status: never smoked Alcohol intake: never Vitals/I&O/Wt Last Vital Signs Temp 98.2 F 05/23/22 16:21 Pulse 64 05/23/22 18:50 Resp 18 05/23/22 18:50 BP 135/55 05/23/22 18:50 Pulse Ox 100 05/23/22 18:50 O2 Del Method 05/23/22 16:21 Weight last 48 hrs Weight 70.307 kg Physical Exam Narrative: Pleasant cooperative female Euvolemic Abdomen soft Right arm in a sling Upper extremities I could feel right radial artery Arms are warm to touch No active signs of cyanosis Hemodynamically stable Blood pressure stable Afebrile Abdomen soft Lower extremity no edema Left knee swelling, moderate left knee effusion noted EOMI, PERRLA nonfocal neuro exam Data 05/23/22 18:07 05/23/22 18:07 A&P Assessment and plan (1) Chronic GERD: (2) Right humeral fracture: (3) Bronchitis: Plan Mechanical fall Humeral fracture Vascular compromise improved after closed reduction Patient arm is in a sling Dr. Tapia has requested equipment from [place] which will probably take 1 day I will keep her n.p.o. after midnight in case apparatus arrives by tomorrow Opioids with bowel regimen We will place Neal catheter which could be removed after surgery Patient can have a light meal tonight Bronchitis I do not see any active consolidation to initiate antibiotics at this point Closely monitor for now In case of fever might order COVID PCR Continue to monitor for now Afebrile doing well on room Self interpretation of x-ray, normal chest x-ray, mild bibasilar vascular congestion History of A-fib, EKG self interpretation is showing slow ventricular response ectopic atrial beat Patient is on aspirin at home GERD: Continue famotidine, may need Protonix during this admission Goals of care discussed with the patient she is full code Patient lives alone, take care of her daily activities independently, Will need occupational therapy after surgery Will request echo preoperatively Full code Regular diet, DVT prophylaxis SCDs in anticipation of surgery tomorrow versus day after tomorrow Attestations Medical Necessity Statement*: More than 2 midnights anticipated Diagnoses Chronic GERD K21.9 Right humeral fracture S42.301A Bronchitis J40
--- NOTE | 2022-05-23 20:44 | USCV_ITS ---
Kacy Arroyo Age: 77 Gender: F : 1945 Exam Date: 05/23/2022 21:13 Ordering Phys: Chey Boo MD Technologist: ABIOLA Exam Location: [facility] – [place] Indication: pre-op ORIF clearance s/p fall, RIGHT shoulder fracture. No history of cardiac intervention per patient. BP: 135 / 55 HR: 63 Rhythm: Sinus Technical Quality: Adequate MEASUREMENTS (Male / Female) Normal Values 2D ECHO LV Diastolic Diameter PLAX 4.3 cm 4.2 - 5.9 / 3.9 - 5.3 cm LV Systolic Diameter PLAX 2.8 cm IVS Diastolic Thickness 0.9 cm 0.6 - 1.0 / 0.6 - 0.9 cm IVS Systolic Thickness 1.0 cm LVPW Diastolic Thickness 1.0 cm 0.6 - 1.0 / 0.6 - 0.9 cm LVPW Systolic Thickness 1.5 cm LVOT Diameter 1.8 cm LV Ejection Fraction 2D Teich 65.3 % LV Ejection Fraction MOD 2C 64.0 % LV Ejection Fraction 2C AL 64.3 % LA Diameter 3.1 cm LA Width 3.2 cm LA Height 3.9 cm RA Width 3.1 cm RA Height 4.9 cm Aorta at Sinotubular Diameter 2.8 cm IVC Diameter 1.4 cm M-MODE Aortic Annulus Diameter 2.9 cm LA Ao Ratio MM 1.1 MV E Point Septal Separation 0.3 cm DOPPLER AV Peak Velocity 111.0 cm/s LVOT Peak Velocity 111.0 cm/s AV Area Cont Eq vti 2.5 cm squared AV Area Cont Eq pk 2.5 cm squared MV Area PHT 3.1 cm squared Mitral E to A Ratio 1.2 MV E' Velocity 45.5 cm/s Mitral E to MV E' Ratio 10.6 Mitral E to LV E' Lateral Ratio 11.4 Mitral E to LV E' Septal Ratio 9.9 TR Peak Velocity 244.0 cm/s TR Peak Gradient 23.8 mmHg TV Peak E Velocity 39.0 cm/s Right Atrial Pressure 5.0 mmHg Pulmonary Artery Systolic Pressu 28.8 mmHg PV Peak Velocity 80.0 cm/s RV Acceleration Time 0.1 s RV Ejection Time 0.4 s RV AcT/ET 0.4 FINDINGS Left Ventricle Normal left ventricular size and systolic function, EF 67 %. No regional wall motion abnormalities. Right Ventricle The right ventricle is normal in size and function. Right Atrium The right atrium is normal in size. Left Atrium The left atrium is normal in size. Mitral Valve No gross abnormalities noted Aortic Valve No gross abnormalities noted Tricuspid Valve Mild tricuspid valve regurgitation. Pulmonic Valve Pulmonic valve not well visualized. Pericardium No pericardial effusion Aorta Normal aortic annulus size. IVC Normal inferior vena cava. CONCLUSIONS Normal left ventricular size and systolic function, EF 67 %. No regional wall motion abnormalities. Mild tricuspid valve regurgitation. There is no pericardial effusion. There are no intracardiac masses. No similar previous studies are available for comparison Dr Dave Christianson MD FACC (Electronically Signed) Final Date: 23 May 2022 23:17 S
[2022-05-23] MEDS: HYDROmorphone 1 mg/mL INJ 1 mL 0.4 MG IVP (20:59)
[2022-05-23] MEDS: ondansetron 2 mg/ML SDV 2 mL 4 MG IVP ×2 (20:59→21:41)
[2022-05-23 21:27] LABS: Estmated Average Glucose 100; Hemoglobin A1C 5.1 % (4.0-6.0)
[2022-05-23] MEDS: sodium chloride 0.9% 1,000 ML 75 ML IV (21:41)
[2022-05-23] MEDS: morphine IR 15 mg Tablet PO (22:33)
[2022-05-24] VITALS (15 sets, daily range): BP systolic 118–169; BP diastolic 65–76; PULSE 62–84; RESP 15–18; TEMP 36.8–37.6; O2SAT 91–99
[2022-05-24 00:22] LABS: Vitamin B12 351 pg/mL (232-1245)
[2022-05-24 05:44] LABS: Basophils % 0.2 %; Eosinophils # 0.1 10^3/uL (0.0-0.8); Eosinophils % 0.6 %; Hemoglobin 11.3 g/dL (11.5-15.3); Lymphocytes # 1.1 10^3/uL (0.8-4.8); Lymphocytes % 12.9 %; Mean Corpuscular HGB Conc 31.4 g/dL (30.0-36.0); Mean Corpuscular Hemoglobin 30.2 pg (28.0-34.0); Mean Corpuscular Volume 96.3 fl (81-99); Mean Platelet Volume 10.2 fL (7.4-10.4); Monocytes # 0.7 10^3/uL (0.2-0.9); Monocytes % 8.9 %; Neutrophils # 6.41 10^3/uL (1.8-7.7); Neutrophils % 76.9 %; Nucleated Red Blood Cells % 0 %; Platelet Count 166 10^3/cmm (130-400); Red Blood Count 3.74 10^6/uL (4.1-5.3); Red Cell Distribution Width 12.7 % (12.1-15.1); White Blood Count 8.3 10^3/uL (4.0-10.0)
[2022-05-24 06:03] LABS: Blood Urea Nitrogen 15 mg/dL (8-23); Calcium 8.4 mg/dL (8.5-10.5); Carbon Dioxide 26 mmol/L (22-29); Chloride 103 mmol/L (98-107); Glucose 109 mg/dL (65-115); Osmolality Calculated 285 mOsm/kg (285-295); Sodium 137 mmol/L (136-145)
[2022-05-24 06:17] LABS: Anion Gap 12.7 (5-19); Potassium 4.7 mmol/L (3.5-5.1)
[2022-05-24] MEDS: morphine 4 mg/mL SDV 1 mL IVP (08:22)
[2022-05-24] MEDS: chlorthalidone 25 mg Tablet 12.5 MG PO (08:25)
[2022-05-24] MEDS: sennosides-docusate Tablet 1 TAB PO (08:26)
[2022-05-24] MEDS: famotidine 20 mg Tablet PO ×2 (08:26→17:53)
[2022-05-24] MEDS: HYDROmorphone 1 mg/mL INJ 1 mL 0.4 MG IVP (09:34)
[2022-05-24] MEDS: diphenhydrAMINE 50 mg/mL SDV 1mL 12.5 MG IVP (09:34)
[2022-05-24] MEDS: sodium chloride 0.9% 1,000 ML 75 ML IV ×2 (11:21→23:12)
[2022-05-24] MEDS: morphine IR 15 mg Tablet PO (11:29)
--- NOTE | 2022-05-24 12:14 | PM.PN ---
Subjective Subjective: - Patient was seen this morning -She complains of right shoulder pain -She does have some diabetes in the right hand, -Currently in a shoulder immobilizer For atrial fibrillation, she tells me that it really has not given her problems since 1996, she is not on anticoagulation- Vitals/I&O/Wt Last Vital Signs Temp 98.3 F 05/24/22 08:28 Pulse 69 05/24/22 08:28 Resp 18 05/24/22 11:29 BP 169/71 05/24/22 08:28 Pulse Ox 99 05/24/22 08:28 O2 Del Method 05/24/22 08:28 O2 Flow Rate 2 05/24/22 08:00 05/23/22 05/24/22 05/24/22 22:59 06:59 14:59 Intake Total 120 / 120 120 / 240 1000 / 1000 Balance 120 / 120 120 / 240 1000 / 1000 Weight last 48 hrs Weight 70.307 kg Weight 70.307 kg Physical Exam Const: COMMON NORMALS: no acute distress and patient oriented x3 Resp: COMMON NORMALS: normal respiratory effort, No retractions, No use of accessory muscles and clear to auscultation bilaterally AUSCULTATION: clear to auscultation bilaterally Cardio: COMMON NORMALS: regular rate, regular rhythm, S1 normal heart sound present and S2 normal heart sound present RATE: regular rate RHYTHM: regular rhythm HEART SOUNDS: S1 normal heart sound present and S2 normal heart sound present GI: COMMON NORMALS: Normal to inspection, nondistended, normoactive bowel sounds present and non-tender Extremity: COMMON NORMALS: no pedal edema Neuro: COMMON NORMALS: patient oriented x3 Psych: COMMON NORMALS: mental status grossly normal Urinary Catheter Management: Neal: Cath Placed During This Visit: yes Reason for Continuing Indwelling Catheter: Perioperative Use in Selected Surgeries Urinary Catheter Date of Insertion: 05/24/22 Urinary Catheter Time of Insertion: 01:02 Data 05/24/22 05:29 05/24/22 05:29 A&P Assessment and plan (1) Chronic GERD: (2) Right humeral fracture: (3) Bronchitis: (4) HTN (hypertension), benign: (5) Brachial plexus neuralgia: Plan Mechanical fall Humeral fracture Vascular compromise improved after closed reduction Patient arm is in a sling Dr. Tapia has requested equipment from [place] which will probably take 1 day N.p.o. tomorrow morning Opioids with bowel regimen We will place Neal catheter which could be removed after surgery Patient can have a light meal tonight Complaints of numbness, tingling right hand -Possible brachial plexus neuralgia/irritation, possible injury, with dislocation, fracture -Continue to monitor Bronchitis I do not see any active consolidation to initiate antibiotics at this point Closely monitor for now Continue to monitor for now Afebrile doing well on room Self interpretation of x-ray, normal chest x-ray, mild bibasilar vascular congestion History of A-fib, EKG self interpretation is showing slow ventricular response ectopic atrial beat Patient is on aspirin at home GERD: Continue famotidine, may need Protonix during this admission Hypertension, continue chlorthalidone Goals of care discussed with the patient she is full code Patient lives alone, take care of her daily activities independently, Will need occupational therapy after surgery Will request echo preoperatively Full code Regular diet, DVT prophylaxis Lovenox, SCDs Attestations Medical Necessity Statement*: Patient requires hospitalization for mechanical fall, with humeral fracture,, brachial plexus injury Diagnoses Chronic GERD K21.9 Right humeral fracture S42.301A Bronchitis J40 HTN (hypertension), benign I10 Brachial plexus neuralgia M54.12
[2022-05-24] MEDS: HYDROmorphone 1 mg/mL INJ 1 mL 0.5 MG IVP ×2 (13:59→23:19)
[2022-05-24] MEDS: enoxaparin 40 mg/0.4 mL Syringe SUBCUT (14:01)
--- NOTE | 2022-05-24 16:16 | PM.CONSULT ---
Providers/Reason For Consult Consulting Physician/Specialty*: Yohannes Jackson MD; orthopedic surgeon Reason for Consult*: Right proximal humerus fracture Attending Physician: Tanner Belle MD Primary Care Provider: Oswaldo Streeter MD History of Present Illness History of Present Illness Kacy Arroyo is a 77 year old female seen for fracture dislocation of her right shoulder. She reportedly slipped and fell on a hard tile floor at home with immediate pain in her shoulder. She presented to the emergency room with her arm and a abducted externally rotated position. Upon arrival she was noted to have thready pulses. A closed reduction was performed with improvement in the perfusion of her extremity. Radiographs revealed a comminuted fracture of the right proximal humerus. She was admitted for pain control and likely surgical management. Medications/Allergies Home Medications Medication Instructions Recorded Confirmed Last Taken Type aspirin 81 mg chewable tablet 81 mg PO BEDTIME 07/22/19 05/23/22 05/22/22 History famotidine 20 mg tablet (Pepcid) 20 mg PO BID 07/22/19 05/23/22 05/23/22 History triamcinolone acetonide 0.1 % 1 applic topical BID #30 grams 04/08/20 05/23/22 Unknown Rx topical ointment clotrimazole 1 % topical cream 1 applic topical BID #30 grams 06/06/21 05/23/22 Unknown Rx cetirizine 10 mg tablet 10 mg PO BEDTIME 05/23/22 05/23/22 05/22/22 History cholecalciferol (vitamin D3) 50 50 mcg PO DAILY 05/23/22 05/23/22 05/22/22 History mcg (2,000 unit) capsule (Vitamin D3) fluoxetine 40 mg capsule 20 mg PO DAILY 05/23/22 05/23/22 05/23/22 History Allergies Allergy/AdvReac Type Severity Reaction Status Date / Time ondansetron [From Zofran] Allergy ADR-Itching Verified 05/24/22 08:32 Current Medications Generic Name Dose Route Start Last Admin Trade Name Freq PRN Reason Stop Dose Admin Chlorthalidone 12.5 mg 05/24/22 09:00 05/24/22 08:25 Chlorthalidone 25 Mg Tablet PO 12.5 mg DAILY ORION Administration Enoxaparin Sodium 40 mg 05/24/22 13:30 05/24/22 14:01 Enoxaparin 40 Mg/0.4 Ml Syringe SUBCUT 40 mg Q24H ORION Administration Famotidine 20 mg 05/24/22 09:00 05/24/22 08:26 Famotidine 20 Mg Tablet PO 20 mg BID ORION Administration Hydromorphone HCl 0.5 mg 05/24/22 12:18 05/24/22 13:59 Hydromorphone 1 Mg/Ml Inj 1 Ml IVP 0.5 mg Q4H PRN Administration SEVERE pain Sodium Chloride 1,000 mls @ 75 mls/hr 05/23/22 20:44 05/24/22 11:21 Sodium Chloride 0.9% IV 75 mls/hr .[id number] ORION Administration Senna/Docusate Sodium 1 tab 05/24/22 09:00 05/24/22 08:26 Sennosides-Docusate Tablet PO 1 tab DAILY ORION Administration PFSH Acute PFSH: Medical History (Updated 05/24/22 @ 16:21 by Yohannes Tapia MD) Atrial fibrillation Chronic GERD Depression Dyspepsia Dysphagia Epigastric pain History of basal cell carcinoma (BCC) of skin History of nonmelanoma skin cancer Hypertension Surgical History (Updated 05/23/22 @ 20:58 by Chey Boo MD) H/O colonoscopy 2013 History of carpal tunnel release History of colonoscopy with polypectomy (~08/2019) History of esophagogastroduodenoscopy (EGD) (~08/2019) History of esophagogastroduodenoscopy (EGD) (~2013) History of hysterectomy History of left knee replacement History of repair of rotator cuff Family History Father CAD (coronary artery disease) Brother CAD (coronary artery disease) Cancer 3 brothers-2 lung-1 small intestine Mother Hypertension Kidney stones Social History Smoking and tobacco status: never smoked Alcohol intake: never Vitals/I&O/Wt Last Vital Signs Temp 98.6 F 05/24/22 12:29 Pulse 73 05/24/22 12:29 Resp 18 05/24/22 13:59 BP 125/69 05/24/22 12:29 Pulse Ox 94 05/24/22 12:29 O2 Del Method 05/24/22 12:29 O2 Flow Rate 2 05/24/22 08:00 05/24/22 05/24/22 05/24/22 06:59 14:59 22:59 Intake Total 120 / 240 1240 / 1240 Balance 120 / 240 1240 / 1240 Weight last 48 hrs Weight 155 lb Weight 155 lb Physical Exam Narrative: Cruz is supine in bed. She is alert and oriented and answers questions appropriately. She has clear swelling about her shoulder Her arm is protected in a shoulder immobilizer. She will fire her deltoid and her biceps. She will flex extend her ulnar 4 fingers as well as extend and oppose her thumb. She does have some loss of digital flexion She has subjective diminished sensation in the tips of all of her digits of the hand. She has a strong radial pulse. Urinary Catheter Management: Neal: Cath Placed During This Visit: yes Reason for Continuing Indwelling Catheter: Perioperative Use in Selected Surgeries Urinary Catheter Date of Insertion: 05/24/22 Urinary Catheter Time of Insertion: 01:02 Data 05/24/22 05:29 05/24/22 05:29 Other data: The patient is pre and postreduction AP radiographs of the right humerus. Initially there is a comminuted fracture involving the tuberosities and anatomic neck of the humerus with inferior displacement of the head relative to the glenoid. Postreduction radiographs show a better relationship of the shaft to the tuberosities and glenoid but persistent dislocation of the humeral head A&P Assessment and plan (1) Fracture of humerus, proximal, right, closed: Discussed treatment options with Kacy. I told her with persistent displacement of her humeral head this will need to be addressed surgically. With the displacement of the small humeral head fragment I do not think open reduction internal fixation would be feasible and would carry a very high risk of of avascular necrosis. I think her best option would be a arthroplasty and I think our best most reliable function would be with a reverse total shoulder. Discussed the magnitude of the procedure with her. She is familiar with the risk inherent with orthopedic reconstruction referring to her extensive left lower extremity surgeries. Discussed risk including bleeding infection. Discussed risk of continued pain, motion loss and weakness. I discussed risk inherent to shoulder arthroplasty such as dislocation. I made her aware of anesthetic risk. She has some numbness in her digits suggestive of some possible neurological injury we will continue to follow this. She has excellent perfusion of her hand and strong radial pulses. Coding Level of Care Code Acute Code for Chg Fwd Diagnoses Fracture of humerus, proximal, right, closed S42.201A
[2022-05-24] MEDS: morphine 4 mg/mL SDV 1 mL 2 MG IVP (17:53)
[2022-05-24] MEDS: acetaminophen 500 mg Tablet PO (20:24)
[2022-05-25] VITALS (18 sets, daily range): BP systolic 96–132; BP diastolic 46–69; PULSE 69–107; RESP 15–19; TEMP 36.1–37.2; O2SAT 90–97
[2022-05-25 06:10] LABS: Basophils % 0.2 %; Eosinophils # 0.1 10^3/uL (0.0-0.8); Eosinophils % 1.4 %; Hematocrit 32.4 % (37.0-47.0); Hemoglobin 10.2 g/dL (11.5-15.3); Lymphocytes # 1.1 10^3/uL (0.8-4.8); Lymphocytes % 12.6 %; Mean Corpuscular HGB Conc 31.5 g/dL (30.0-36.0); Mean Corpuscular Hemoglobin 29.6 pg (28.0-34.0); Mean Corpuscular Volume 93.9 fl (81-99); Mean Platelet Volume 9.9 fL (7.4-10.4); Monocytes % 11.2 %; Neutrophils # 6.47 10^3/uL (1.8-7.7); Neutrophils % 74.5 %; Nucleated Red Blood Cells % 0 %; Platelet Count 151 10^3/cmm (130-400); Red Blood Count 3.45 10^6/uL (4.1-5.3); Red Cell Distribution Width 12.6 % (12.1-15.1); White Blood Count 8.7 10^3/uL (4.0-10.0)
[2022-05-25 06:29] LABS: Blood Urea Nitrogen 9 mg/dL (8-23); Calcium 8.3 mg/dL (8.5-10.5); Carbon Dioxide 28 mmol/L (22-29); Chloride 100 mmol/L (98-107); Glucose 102 mg/dL (65-115); Osmolality Calculated 279 mOsm/kg (285-295); Sodium 135 mmol/L (136-145)
[2022-05-25] MEDS: HYDROmorphone 1 mg/mL INJ 1 mL 0.5 MG IVP (09:38)
[2022-05-25] MEDS: chlorthalidone 25 mg Tablet 12.5 MG PO (09:42)
[2022-05-25] MEDS: sennosides-docusate Tablet 1 TAB PO (09:42)
[2022-05-25] MEDS: famotidine 20 mg Tablet PO (09:42)
[2022-05-25] MEDS: morphine 4 mg/mL SDV 1 mL 2 MG IVP (11:07)
[2022-05-25] MEDS: metoclopramide 5 mg/mL SDV 2 mL IVP (11:20)
[2022-05-25] MEDS: sodium chloride 0.9% 1,000 ML 30 ML IV (12:06)
[2022-05-25] MEDS: acetaminophen 1,000 MG/100 ML PIGGYBACK 400 MG IV (12:06)
[2022-05-25] MEDS: CELEcoxib 200 mg Capsule 400 MG PO (12:13)
--- NOTE | 2022-05-25 12:58 | ANES.PREANE2 ---
Pre-Anesthetic Assessment Height/Weight: Height 1.7 m Weight 70.307 kg Temp Pulse Resp BP Pulse Ox O2 Del Method O2 Flow Rate 97.7 F 84 18 132/60 90 2 05/25/22 11:52 05/25/22 11:52 05/25/22 11:52 05/25/22 11:52 05/25/22 11:52 05/25/22 11:52 05/24/22 20:00 Preop Diagnosis: Fracture right proximal humerus Operation Date: 05/25/22 13:25 Proposed Procedures p Total Reverse Shoulder Arthroplasty(Right) - Yohannes Tapia MD Familial anesthetic complications: None Was Beta Avani taken within 24 hours: N/A Was Clonidine taken within 24 hours: N/A Last intake: Intake Last Liquid Date 05/24/22 Last Liquid Time 00:00 Last Solid Date 05/24/22 Last Solid Time 00:00 Social No alcohol and No tobacco Exam alert, oriented x 3, clear to auscultation bilaterally and regular rate & rhythm Airway Mallampati: Class II Dentition: full CV/HEM Atrial Fibrillation and Hypertension GI Gastroesophageal Reflux Disease Anesthetic Plan ASA status: 3 Anesthesia: General and Regional (specify below) Risk of > 500 ml blood loss (7ml/kg in children): No Medications/Allergies Home Medications Medication Instructions Recorded Confirmed Last Taken Type aspirin 81 mg chewable tablet 81 mg PO BEDTIME 07/22/19 05/23/22 05/22/22 History famotidine 20 mg tablet (Pepcid) 20 mg PO BID 07/22/19 05/23/22 05/23/22 History triamcinolone acetonide 0.1 % 1 applic topical BID #30 grams 04/08/20 05/23/22 Unknown Rx topical ointment clotrimazole 1 % topical cream 1 applic topical BID #30 grams 06/06/21 05/23/22 Unknown Rx cetirizine 10 mg tablet 10 mg PO BEDTIME 05/23/22 05/23/22 05/22/22 History cholecalciferol (vitamin D3) 50 50 mcg PO DAILY 05/23/22 05/23/22 05/22/22 History mcg (2,000 unit) capsule (Vitamin D3) fluoxetine 40 mg capsule 20 mg PO DAILY 05/23/22 05/23/22 05/23/22 History Allergies Allergy/AdvReac Type Severity Reaction Status Date / Time ondansetron [From Zofran] Allergy ADR-Itching Verified 05/24/22 08:32 Current Medications Generic Name Dose Route Start Last Admin Trade Name Guyq PRN Reason Stop Dose Admin Acetaminophen 500 mg 05/23/22 20:44 05/24/22 20:24 Acetaminophen 500 Mg Tablet PO 500 mg Q4H PRN Administration fever Chlorthalidone 12.5 mg 05/24/22 09:00 05/25/22 09:42 Chlorthalidone 25 Mg Tablet PO 12.5 mg DAILY ORION Administration Enoxaparin Sodium 40 mg 05/24/22 13:30 05/24/22 14:01 Enoxaparin 40 Mg/0.4 Ml Syringe SUBCUT 40 mg Q24H ORION Administration Famotidine 20 mg 05/24/22 09:00 05/25/22 09:42 Famotidine 20 Mg Tablet PO 20 mg BID ORION Administration Hydromorphone HCl 0.5 mg 05/24/22 12:18 05/25/22 09:38 Hydromorphone 1 Mg/Ml Inj 1 Ml IVP 0.5 mg Q4H PRN Administration SEVERE pain Sodium Chloride 1,000 mls @ 75 mls/hr 05/23/22 20:44 05/24/22 23:12 Sodium Chloride 0.9% IV 75 mls/hr .[id number] ORION Administration Sodium Chloride 1,000 mls @ 30 mls/hr 05/25/22 12:00 05/25/22 12:06 Sodium Chloride 0.9% IV 05/26/22 11:59 30 mls/hr .Q24H ORION Administration Metoclopramide HCl 5 mg 05/24/22 08:33 05/25/22 11:20 Metoclopramide 5 Mg/Ml Sdv 2 Ml IVP 5 mg Q6H PRN Administration NAUSEA AND VOMITING Morphine Sulfate 2 mg 05/24/22 12:18 05/25/22 11:07 Morphine 4 Mg/Ml Sdv 1 Ml IVP 2 mg Q8H PRN Administration BREAKTHROUGH PAIN Senna/Docusate Sodium 1 tab 05/24/22 09:00 05/25/22 09:42 Sennosides-Docusate Tablet PO 1 tab DAILY [facility]ION Administration [facility] Anesthesia Medical History (Updated 05/24/22 @ 16:21 by Yohannes Tapia MD) Atrial fibrillation Chronic GERD Depression Dyspepsia Dysphagia Epigastric pain History of basal cell carcinoma (BCC) of skin History of nonmelanoma skin cancer Hypertension Surgical History (Updated 05/23/22 @ 20:58 by Chey Boo MD) H/O colonoscopy 2013 History of carpal tunnel release History of colonoscopy with polypectomy (~08/2019) History of esophagogastroduodenoscopy (EGD) (~08/2019) History of esophagogastroduodenoscopy (EGD) (~2013) History of hysterectomy History of left knee replacement History of repair of rotator cuff Family History Father CAD (coronary artery disease) Brother CAD (coronary artery disease) Cancer 3 brothers-2 lung-1 small intestine Mother Hypertension Kidney stones Social History Smoking and tobacco status: never smoked Alcohol intake: never Data Anesthesia 05/25/22 06:02 05/25/22 06:02 Short CBC 05/23/22 05/24/22 05/25/22 Range/Units 18:07 05:29 06:02 WBC 10.4 H 8.3 8.7 (4.0-10.0) 10^3/uL Hgb 12.3 11.3 L 10.2 L (11.5-15.3) g/dL Hct 38.4 36.0 L 32.4 L (37.0-47.0) % MCV 93.9 96.3 93.9 (81-99) fl Plt Count 212 166 151 (130-400) 10^3/cmm Neut % (Auto) 85.3 76.9 74.5 % Neut # (Auto) 8.88 H 6.41 6.47 (1.8-7.7) 10^3/uL BMP 05/23/22 05/24/22 05/25/22 18:07 05:29 06:02 Sodium 142 137 135 L Potassium 3.8 4.7 4.0 Chloride 103 103 100 Carbon Dioxide 28 26 28 BUN 16 15 9 Creatinine 0.8 0.8 0.8 Glucose 117 H 109 102 Calcium 8.5 8.4 L 8.3 L Liver Function 05/23/22 Range/Units 18:07 Total Bilirubin 0.4 (0.15-1.2) mg/dL AST 20 (0-32) U/L ALT 13 (0-33) U/L Alkaline Phosphatase 101 (35-105) U/L Albumin 4.3 (3.5-5.2) g/dL Urine 05/23/22 Range/Units 18:31 Urine Color Yellow (Yellow) Urine Appearance Clear (CLEAR) Urine pH 8 H (5-7) Ur Specific [place] 1.010 (1.005-1.030) Urine Protein Neg (Negative) Urine Glucose (UA) Norm (Normal) Urine Ketones Negative (Negative) Urine Nitrate Negative (Negative) Urine Bilirubin Neg (Negative) Ur Leukocyte Esterase Negative (Negative) Cardiac Studies: Echocardiogram 05/23/22
--- NOTE | 2022-05-25 13:02 | ANES.PROC ---
Anesthesia Procedures Procedure/Date: 05/25/22 Nerve Block ^: Nerve Block 1: Main Anesthesia: general anesthesia Time Out Performed: No Consent: requested by attending/covering physician, from patient, risks and benefits reviewed and patient agrees to proceed Nerve block location: interscalene (R) and popliteal Anesthesia monitors applied: pulse oximetry, EKG, BP cuff and oxygen Nerve block position: semi sitting Anesthetic Used: ropivicaine 0.5% (20 ml) and with decadron (4 mg) Ultrasound used to: recognize landmarks, visualize and ID brachial plexus and visualize and ID interscalene groove Nerve Stimulator Used?: No Interscalene/Femoral BLK: 2 stimuplex 22 g needle used for position and inplane approach, visualize local anesthetic spread and no vascular puncture identified Patient Tolerated Procedure: well and no complications Complications: none
[2022-05-25] MEDS: ceFAZolin 2,000 MG in sodium chloride 0.9% (plus) 50 ML 100 MG IV (13:06)
--- NOTE | 2022-05-25 13:58 | SUR.OPER ---
Called and notified family of surgical start.
[2022-05-25] MEDS: tranexamic acid 1,000 mg/10mL SDV 2000 MG IRRIGATION (14:00)
--- NOTE | 2022-05-25 14:52 | SUR.OPER ---
updated family on surgical progress.
--- NOTE | 2022-05-25 15:56 | P.PN_ITS ---
Subjective Subjective: Patient was seen this morning, she continues to complain of some numbness in her fingers Vitals/I&O/Wt Last Vital Signs Temp 97.7 F 05/25/22 11:52 Pulse 84 05/25/22 11:52 Resp 18 05/25/22 11:52 BP 132/60 05/25/22 11:52 Pulse Ox 90 05/25/22 11:52 O2 Del Method 05/25/22 11:52 O2 Flow Rate 2 05/24/22 20:00 05/25/22 05/25/22 05/25/22 06:59 14:59 22:59 Intake Total 1000 / 2840 150 / 150 Output Total 350 / 2750 1200 / 1200 Balance 650 / 90 -1050 / -1050 Weight last 48 hrs Weight 70.307 kg Weight 70.307 kg Physical Exam Const: COMMON NORMALS: no acute distress and patient oriented x3 Resp: COMMON NORMALS: normal respiratory effort, No retractions, No use of accessory muscles and clear to auscultation bilaterally AUSCULTATION: clear to auscultation bilaterally Cardio: COMMON NORMALS: regular rate, regular rhythm, S1 normal heart sound present and S2 normal heart sound present RATE: regular rate RHYTHM: regular rhythm HEART SOUNDS: S1 normal heart sound present and S2 normal heart sound present GI: COMMON NORMALS: Normal to inspection, nondistended, normoactive bowel sounds present and non-tender Extremity: COMMON NORMALS: no pedal edema Neuro: COMMON NORMALS: patient oriented x3 Psych: COMMON NORMALS: mental status grossly normal Urinary Catheter Management: Neal: Cath Placed During This Visit: yes Reason for Continuing Indwelling Catheter: Perioperative Use in Selected Surgeries Urinary Catheter Date of Insertion: 05/24/22 Urinary Catheter Time of Insertion: 01:02 Data 05/25/22 06:02 05/25/22 06:02 A&P Assessment and plan (1) Chronic GERD: (2) Right humeral fracture: (3) Bronchitis: (4) HTN (hypertension), benign: (5) Brachial plexus neuralgia: Plan Mechanical fall Humeral fracture Vascular compromise improved after closed reduction Patient arm is in a sling Plan OR today Opioids with bowel regimen We will place Neal catheter which could be removed after surgery Complaints of numbness, tingling right hand -Possible brachial plexus neuralgia/irritation, possible injury, with dislocation, fracture -Continue to monitor Bronchitis I do not see any active consolidation to initiate antibiotics at this point Closely monitor for now Continue to monitor for now Afebrile doing well on room Self interpretation of x-ray, normal chest x-ray, mild bibasilar vascular congestion History of A-fib, EKG self interpretation is showing slow ventricular response ectopic atrial beat Patient is on aspirin at home GERD: Continue famotidine, may need Protonix during this admission Hypertension, continue chlorthalidone Goals of care discussed with the patient she is full code Patient lives alone, take care of her daily activities independently, Will need occupational therapy after surgery Full code Regular diet, DVT prophylaxis Lovenox, SCDs Attestations Medical Necessity Statement*: Patient requires a position for humeral fracture Coding Level of Care Code 26755 Moderate MDM includes number and complexity of problems actively addressed during encounter, amount and/or complexity of data reviewed/ordered and described risk of complication, morbidity or mortality of management as docum ented Diagnoses Chronic GERD K21.9 Right humeral fracture S42.301A Bronchitis J40 HTN (hypertension), benign I10 Brachial plexus neuralgia M54.12
--- NOTE | 2022-05-25 16:22 | PM.OP ---
Operative Report Date of procedure: May 25, 2022 Pre-op diagnosis: Preop Diagnosis Fracture right proximal humerus Post-op diagnosis: same Procedure done: Right reverse total shoulder Implants: 1) Tornier Aequalis Flex Revive 13 x 9 mm stem 2) Aequalis Flex Revive 13 mm mm proximal body 3) Flex Shoulder System reversed tray +0mm 4) Flex Shoulder System 36 mm +6 mm reversed insert 5) Aequalis PerFORM Reversed 25 mm standard baseplate 6) Aequalis perForm Reversed standard glenosphere 7) Glenoid screws: central 36mm, superior 30 mm inferior 30 mm Pathology: none sent Surgeon: Yohannes Tapia Anesthesia: General and Nerve Block (Interscalene block) Estimated blood loss (mL): 500 Condition: stable Disposition: PACU Procedure: An intrascalene blocks provided the holding area. The patient was taken to the operating room and given a general anesthesia. They were given 2 g of Ancef. A Gayle stand was covered and use to support support the arm A timeout was performed. A 10 cm long incision was made over the deltopectoral groove and dissection carried out with a scalpel blade to the deltopectoral interval. The cephalic vein was identified and retracted laterally. Digital dissection was accomplished to free lesions beneath the deltoid and beneath the coracobrachialis musculature. An Vito medium tissue protector was used to retract the pectoralis major and the deltoid. The biceps was identified and used to find the greater and lesser tuberosities and rotator interval. It was released and the proximal bicipital groove. The attachments of the subscapularis to the lesser tuberosity and supraspinatus and infraspinatus to the greater tuberosity were identified those tuberosities mobilized. The greater tuberosity was secured with 4 #2 braided polyester sutures passed around the greater tuberosity at the tenderness insertion and 2 #2 sutures about around the lesser tuberosity at the tendinous insertion. The free humeral head was palpated loose medial to the humerus.-There are some difficulty could be manipulated anteriorly digitally and grasped with a Laurel clamp and removed from the wound Utilizing electrocautery the glenoid was exposed circumferentially. The centering guide was used to place the central guidepin and the glenoid ream down to sclerotic bone in the glenoid prepared for the 25 mm baseplate. A 20 mm Tornier Aequalis PerFORM REversed glenoid baseplate was then secured in place with a central 40 mm screw, a superior locking 30 mm screw, an inferior locking 30 mm screw. Due to the small size of the glenoid anterior and posterior screws were placed. A standard 36 mm Aequalis perFORM ReversedGlenosphere was then placed. Attention was then focused on the humerus. Sequential reaming of the humeral canal was accomplished up to 13 mm. A trial reduction was accomplished with the 13 Aqualis Flex REvive body and stem with satisfactory stability.. A trial reduction with the 36 x +6 mm mm reversed insert provided adequate stability. A small drill hole was made in the anterior cortex of the humerus and a braided #2 suture loop passed into the canal. the final humeral stem and proximal body was prepared for tuberosity repair. The loop suture to the anterior cortex was passed around the stem and the 4 braided sutures passed through the greater tuberosity were passed through the eyelet on the medial stem. The stem and body were then press-fit into place. The Flex Shoulder system reverse tray and insert were placed and the shoulder reduced with a stable reduction. Initially, 2 of the greater tuberosity sutures were secured across the greater tuberosity to the posterior prosthesis. The other 2 sutures were passed with a free needle through the subscapularis and secured drop further reinforcing the greater tuberosity drawing the lesser tuberosity to the humerus. Finally the suture exiting the anterior hole and the humerus was passed in a [id number] fashion through the tendinous insertions on the greater and lesser tuberosity. The biceps tendon was retracted proximally and secured with sutures from the previous tuberosity repair. The wound was irrigated with a solution of 80 mg of gentamicin. The deltopectoral interval was closed with 0 Vicryl. The subcutaneous tissues were closed with 2-0 Stratafix. The skin was closed with a running 4-0 Stratafix. Sterile dressings were applied. The patient was placed in a shoulder immobilizer, extubated and taken to recovery room in stable condition.
--- NOTE | 2022-05-25 16:40 | XR_ITS ---
WS: [id number] XR shoulder RT min 2V* [id number] REASON FOR EXAM: Right total shoulder FINDINGS: Recent fracture dislocation of the right shoulder. Reversed total right shoulder arthroplasty. The components of the arthroplasty are intact and in proper position and alignment. XR/XR shoulder RT min 2V* [id number] IMPRESSION: Total right shoulder arthroplasty as above.
--- NOTE | 2022-05-25 17:49 | P.PN_ITS ---
Subjective Subjective: Ms. Arroyo is awake and alert in good spirits in recovery room Vitals/I&O/Wt Last Vital Signs Temp 97.0 F L 05/25/22 16:57 Pulse 99 05/25/22 16:57 Resp 17 05/25/22 16:57 BP 121/62 05/25/22 16:57 Pulse Ox 95 05/25/22 16:57 O2 Del Method 05/25/22 16:57 O2 Flow Rate 6 05/25/22 16:37 05/25/22 05/25/22 05/25/22 06:59 14:59 22:59 Intake Total 1000 / 2840 150 / 150 250 / 400 Output Total 350 / 2750 1200 / 1200 800 / 2000 Balance 650 / 90 -1050 / -1050 -550 / -1600 Weight last 48 hrs Weight 155 lb Physical Exam Narrative: Right shoulder dressing clean and dry. Unable to move upper extremity after interscalene block I cannot palpate or Doppler a radial or brachial pulse. Absent sensation digits right hand Urinary Catheter Management: Neal: Cath Placed During This Visit: yes Reason for Continuing Indwelling Catheter: Perioperative Use in Selected Surgeries Urinary Catheter Date of Insertion: 05/24/22 Urinary Catheter Time of Insertion: 01:02 Data 05/25/22 06:02 05/25/22 06:02 Xray Ortho: My impression: 2 views of the right upper extremity including AP and axillary lateral reviewed. Her fracture stem is in satisfactory position A&P Assessment and plan (1) Status post replacement of right shoulder joint: Shoulder in satisfactory position (2) Injury of artery of right upper extremity: I have been unable to Doppler a brachial or radial pulse. As previously documented she had absent pulses on arrival in the emergency room which returned after closed reduction. No significant bleeding was identified at the time of surgery. I am concerned that this could represent a intimal tear or thrombus. I discussed the case with our vascular surgeon Dr. Mondragon and her foreign languages department chair Dr. Lee. They did not feel that we are well suited at this institution to proceed with further arterial intervention. I have contacted [facility] and awaiting a call from Dr. Swanson the vascular surgeon for referral. Attestations Medical Necessity Statement*: Awaiting transfer Coding Level of Care Code Acute Code for Chg Fwd Diagnoses Status post replacement of right shoulder joint Z96.611 Injury of artery of right upper extremity S45.901A
--- NOTE | 2022-05-25 18:10 | SUR.PHASEI ---
While in PACU, nurse noticed that fingers of right hand were extremely pale and cold to touch. Pt stated that she has Raynauds. Nurse placed pulse oximetry to index finger of right hand. Nail beds blue. Nurse unable to obtain pulse oximetry reading. Dr Tapia notified and came to unit to assess patient. Dr Tapia unable to palpate pulses radial or brachial. Dr Tapia attempted to obtain pulses via doppler and still unable to obtain. Dr Ferguson, anesthesiologist, used ultrasound to try to find pulses and was not successful. Warm blankets applied to patients right hand. Dr Tapia spoke with the on-call vascular physician at [facility] who recommended pt be sent to another facility with the capability of treating this patient. Dr Tapia spoke with the patient about possibly needing to be transferred to another facility. Pt stated understanding. Dr Tapia also spoke with patients family. Pt remained alert and oriented and pleasant. Report given to Gisele, 2nd floor patient care nurse, and Chris 2nd floor charge nurse. Pt then transfered to room 277. Pt to be transferred to [facility] in [facility].
--- NOTE | 2022-05-25 18:23 | P.TS_ITS ---
Transfer Summary Providers Date of Admission: 05/23/22 18:35 Date of Discharge/Transfer: 05/25/22 Attending Provider at Admission: Gia Bermeo MD Attending Provider at Transfer: Tanner Belle MD Primary Care Provider: Oswaldo Streeter MD Transfer Plans: Anticipated date of transfer: 05/25/22 . Diagnoses at Discharge Discharge Diagnosis (1) Status post replacement of right shoulder joint: Status: Acute (2) Injury of artery of right upper extremity: Status: Acute Reason for Visit Reason for Visit FALL/ R ARM DEFORMITY Hospital Course Hospital Course Kacy Arroyo is a 77 year old female who carries a history of atrial fibrillation, currently on aspirin, presented today after sustaining a fall.? Patient is stating that she was trying get up from a chair when her foot got stuck and she fell diving forwards on her right shoulder.? She was experiencing excruciating pain that prompted her visit to the ER.? In the ER her right arm were cyanotic, she was diagnosed with complete humeral fracture which was reduced by the ER physician which improved her cyanosis.? Her upper extremities are warm.? She has good hemodynamic parameters at the time of my evaluation doing well on room air.? Complaining of moderate pain in her right shoulder.? Patient is denying chest pain, palpitations, nausea, vomiting or diarrhea.? She lives alone takes care of her daily activities on her own.? In July last year she had left knee surgery in [place].? No previous history of coronary artery disease [place] or CHF. Patient presented to [facility] with mechanical fall, status post humeral fracture, had a closed reduction in the ER, patient underwent a right reverse total shoulder by Dr. Tapia, postoperatively she was noted to have bluish hue to her right upper extremity, with no palpable radial pulse or Doppler pulse, Dr. Tapia has made arrangements for patient to be transferred urgently to [facility] vascular surgery for a evaluation, started on a heparin drip as per their request. Physical Exam Const: COMMON NORMALS: no acute distress and patient oriented x3 Resp: COMMON NORMALS: normal respiratory effort, No retractions, No use of accessory muscles and clear to auscultation bilaterally AUSCULTATION: clear to auscultation bilaterally Cardio: COMMON NORMALS: regular rate, regular rhythm, S1 normal heart sound present and S2 normal heart sound present RATE: regular rate RHYTHM: regular rhythm HEART SOUNDS: S1 normal heart sound present and S2 normal heart sound present GI: COMMON NORMALS: Normal to inspection, nondistended, normoactive bowel sounds present and non-tender Extremity: COMMON NORMALS: no pedal edema Neuro: COMMON NORMALS: patient oriented x3 Psych: COMMON NORMALS: mental status grossly normal Urinary Catheter Management: Neal: Cath Placed During This Visit: yes Reason for Continuing Indwelling Catheter: Perioperative Use in Selected Surgeries Urinary Catheter Date of Insertion: 05/24/22 Urinary Catheter Time of Insertion: 01:02 TS Data Studies Completed and Pending Pending at discharge Category Date Time Status XR shoulder RT min 2V* [id number] Routine Exams 05/25/22 16:40 Taken Basic Metabolic Panel AM LABS Lab 05/26/22 04:00 Ordered Basic Metabolic Panel AM LABS Lab 05/27/22 04:00 Ordered Complete Blood Count w/Auto AM LABS Lab 05/26/22 04:00 Ordered Complete Blood Count w/Auto AM LABS Lab 05/27/22 04:00 Ordered Platelet Count Q2D Lab 05/27/22 04:00 Ordered Platelet Count Q2D Lab 05/29/22 04:00 Ordered Platelet Count Routine Lab 05/25/22 18:20 Ordered Labs from last 24 hours 05/25/22 05/25/22 06:02 06:02 WBC 8.7 RBC 3.45 L Hgb 10.2 L Hct 32.4 L MCV 93.9 MCH 29.6 MCHC 31.5 RDW 12.6 Plt Count 151 MPV 9.9 Neut % (Auto) 74.5 Lymph % (Auto) 12.6 [place] % (Auto) 11.2 Eos % (Auto) 1.4 Baso % (Auto) 0.2 Neut # (Auto) 6.47 Lymph # (Auto) 1.1 [place] # (Auto) 1.0 H Eos # (Auto) 0.1 Baso # (Auto) 0.0 Nucleated RBC % (auto) 0 Nucleated RBCs # 0.0 Sodium 135 L Potassium 4.0 Chloride 100 Carbon Dioxide 28 Anion Gap 11.0 BUN 9 Creatinine 0.8 GFR Calculation Not Reportable Glucose 102 Calculated Osmolality 279 L Calcium 8.3 L Completed Studies During Hospitalization Category Date Time Status XR chest 1V portable [id number] Stat Exams 05/23/22 17:55 Completed XR shoulder RT min 2V* [id number] Stat Exams 05/23/22 16:47 Completed CV. echo complete* [id number] Routine Ultrasound 05/23/22 20:44 Completed Laboratory Last Values WBC 8.7 10^3/uL (4.0-10.0) 05/25/22 06:02 RBC 3.45 10^6/uL (4.1-5.3) L 05/25/22 06:02 Hgb 10.2 g/dL (11.5-15.3) L 05/25/22 06:02 Hct 32.4 % (37.0-47.0) L 05/25/22 06:02 MCV 93.9 fl (81-99) 05/25/22 06:02 MCH 29.6 pg (28.0-34.0) 05/25/22 06:02 MCHC 31.5 g/dL (30.0-36.0) 05/25/22 06:02 RDW 12.6 % (12.1-15.1) 05/25/22 06:02 Plt Count 151 10^3/cmm (130-400) 05/25/22 06:02 MPV 9.9 fL (7.4-10.4) 05/25/22 06:02 Neut % (Auto) 74.5 % 05/25/22 06:02 Lymph % (Auto) 12.6 % 05/25/22 06:02 [place] % (Auto) 11.2 % 05/25/22 06:02 Eos % (Auto) 1.4 % 05/25/22 06:02 Baso % (Auto) 0.2 % 05/25/22 06:02 Neut # (Auto) 6.47 10^3/uL (1.8-7.7) 05/25/22 06:02 Lymph # (Auto) 1.1 10^3/uL (0.8-4.8) 05/25/22 06:02 [place] # (Auto) 1.0 10^3/uL (0.2-0.9) H 05/25/22 06:02 Eos # (Auto) 0.1 10^3/uL (0.0-0.8) 05/25/22 06:02 Baso # (Auto) 0.0 10^3/uL (0.0-0.1) 05/25/22 06:02 Nucleated RBC % (auto) 0 % 05/25/22 06:02 Nucleated RBCs # 0.0 /100WBC 05/25/22 06:02 Sodium 135 mmol/L (136-145) L 05/25/22 06:02 Potassium 4.0 mmol/L (3.5-5.1) 05/25/22 06:02 Chloride 100 mmol/L (98-107) 05/25/22 06:02 Carbon Dioxide 28 mmol/L (22-29) 05/25/22 06:02 Anion Gap 11.0 (5-19) 05/25/22 06:02 BUN 9 mg/dL (8-23) 05/25/22 06:02 Creatinine 0.8 mg/dL (0.5-0.9) 05/25/22 06:02 GFR Calculation Not Reportable 05/25/22 06:02 Glucose 102 mg/dL (65-115) 05/25/22 06:02 Estimat Average Glucose 100 05/23/22 18:07 Hemoglobin A1c 5.1 % (4.0-6.0) 05/23/22 18:07 Calculated Osmolality 279 mOsm/kg (285-295) L 05/25/22 06:02 Calcium 8.3 mg/dL (8.5-10.5) L 05/25/22 06:02 Magnesium 2.0 mg/dL (1.7-2.3) 05/24/22 05:29 Total Bilirubin 0.4 mg/dL (0.15-1.2) 05/23/22 18:07 AST 20 U/L (0-32) 05/23/22 18:07 ALT 13 U/L (0-33) 05/23/22 18:07 Alkaline Phosphatase 101 U/L (35-105) 05/23/22 18:07 Total Protein 7.0 g/dL (6.6-8.7) 05/23/22 18:07 Albumin 4.3 g/dL (3.5-5.2) 05/23/22 18:07 Globulin 2.7 g/dL (1.3-4.6) 05/23/22 18:07 Vitamin B12 351 pg/mL (232-1245) 05/23/22 18:07 Urine Color Yellow (Yellow) 05/23/22 18:31 Urine Appearance Clear (CLEAR) 05/23/22 18:31 Urine pH 8 (5-7) H 05/23/22 18:31 Ur Specific [place] 1.010 (1.005-1.030) 05/23/22 18:31 Urine Protein Neg (Negative) 05/23/22 18:31 Urine Glucose (UA) Norm (Normal) 05/23/22 18:31 Urine Ketones Negative (Negative) 05/23/22 18:31 Urine Blood Neg (Negative) 05/23/22 18:31 Urine Nitrate Negative (Negative) 05/23/22 18:31 Urine Bilirubin Neg (Negative) 05/23/22 18:31 Prot Sulfosalicylic Acd Negative (Negative) 05/23/22 18:31 Urine Urobilinogen Neg mg/dL (Negative) 05/23/22 18:31 Ur Leukocyte Esterase Negative (Negative) 05/23/22 18:31 Radiology Impressions Chest X-Ray 05/23/22 17:55 IMPRESSION: 1. Mild bibasilar opacity is present, consistent with atelectasis, edema, or pneumonia. 2. Comminuted fracture of the proximal right humerus with dislocation of the right humeral head is again identified. Recent Clincial Data Last Vital Signs Temp 97.6 F 05/25/22 18:10 Pulse 83 05/25/22 18:10 Resp 16 05/25/22 18:10 BP 117/57 05/25/22 18:10 Pulse Ox 95 05/25/22 18:10 O2 Del Method 05/25/22 18:10 O2 Flow Rate 6 05/25/22 16:37 Vital Signs Temp Pulse Resp BP Pulse Ox O2 Del Method O2 Flow Rate 05/25/22 18:10 97.6 F 83 16 117/57 95 Room Air 05/25/22 16:57 97.0 F L 99 17 121/62 95 Room Air 05/25/22 16:52 105 H 18 114/55 95 Room Air 05/25/22 16:47 102 H 18 116/55 94 Room Air 05/25/22 16:42 107 H 18 104/54 95 Room Air 05/25/22 16:37 98.8 F 98 18 96/46 97 Simple Mask 6 05/25/22 16:37 6 05/25/22 11:52 97.7 F 84 18 132/60 90 Room Air 05/25/22 11:49 97.5 F L 80 18 132/64 91 05/25/22 11:07 18 95 05/25/22 09:38 18 95 05/25/22 08:00 69 18 95 Room Air 05/25/22 08:00 97.8 F 77 15 107/64 93 Intake & Output/Weight 05/23/22 05/24/22 05/25/22 05/26/22 06:59 06:59 06:59 06:59 Intake Total 240 / 240 2840 / 2840 400 / 400 Output Total 2750 / 2750 1999 / 1999 Balance 240 / 240 90 / 90 -1600 / -1600 Weight 70.307 kg Vitals Last Vital Signs Temp 97.6 F 05/25/22 18:10 Pulse 83 05/25/22 18:10 Resp 16 05/25/22 18:10 BP 117/57 05/25/22 18:10 Pulse Ox 95 05/25/22 18:10 O2 Del Method 05/25/22 18:10 O2 Flow Rate 6 05/25/22 16:37 TS Medications Medications Acetaminophen (Acetaminophen 500 Mg Tablet) 500 mg PO Q4H PRN PRN Reason: fever Last Admin: 05/24/22 20:24 Dose: 500 mg Albuterol/Ipratropium (Ipratropium-Albuterol 3 Ml Neb) 3 ml INHALATION Q6H PRN PRN Reason: SHORTNESS OF BREATH Aspirin (Aspirin 81 Mg Chew Tablet) 81 mg PO BEDTIME [facility] Celecoxib (Celecoxib 200 Mg Capsule) 200 mg PO BID [facility] Last Admin: 05/25/22 18:16 Dose: Not Given Enoxaparin Sodium (Enoxaparin 40 Mg/0.4 Ml Syringe) 40 mg SUBCUT Q24H [facility] Last Admin: 05/24/22 14:01 Dose: 40 mg Gabapentin (Gabapentin 300 Mg Capsule) 300 mg PO BID [facility] Heparin Sodium (Porcine) (Heparin 5,000 Unit/Ml Inj 1 Ml) 0 unit IV PRN PRN; Protocol PRN Reason: Heparin weight-base protocol Sodium Chloride (Sodium Chloride 0.9%) 1,000 mls @ 75 mls/hr IV .[id number] [facility] Last Admin: 05/24/22 23:12 Dose: 75 mls/hr Cefazolin Sodium 2,000 mg/ (Sodium Chloride) 50 mls @ 100 mls/hr IV Q8H [facility]; Protocol Stop: 05/26/22 13:29 Heparin Sodium/Sodium Chloride (Heparin Drip) 25,000 unit in 500 mls @ 0 mls/hr IV .Q0M [facility]; Protocol Metoclopramide HCl (Metoclopramide 5 Mg/Ml Sdv 2 Ml) 10 mg IVP Q4H PRN PRN Reason: NAUSEA AND VOMITING Morphine Sulfate (Morphine 4 Mg/Ml Sdv 1 Ml) 2 mg IVP Q1H PRN PRN Reason: SEVERE PAIN Ondansetron HCl (Ondansetron 2 Mg/Ml Sdv 2 Ml) 4 mg IVP Q4H PRN PRN Reason: NAUSEA AND VOMITING Oxycodone HCl (Oxycodone 5 Mg Ir Tab/Cap) 5 mg PO Q4H PRN PRN Reason: MODERATE PAIN Senna/Docusate Sodium (Sennosides-Docusate Tablet) 1 tab PO DAILY [facility] Last Admin: 05/25/22 09:42 Dose: 1 tab Discontinued Medications Albuterol Sulfate (Albuterol 2.5 Mg/3 Ml Neb) 2.5 mg INHALATION ONCE PRN PRN Reason: WHEEZING Benzocaine (Cetylpyridinium Lozenge) 1 each MUCOUS MEM ONCE ONE Stop: 05/25/22 16:25 Celecoxib (Celecoxib 200 Mg Capsule) 400 mg PO ONCE ONE Stop: 05/25/22 11:51 Last Admin: 05/25/22 12:13 Dose: 400 mg Chlorthalidone (Chlorthalidone 25 Mg Tablet) 12.5 mg PO DAILY [facility] Last Admin: 05/25/22 09:42 Dose: 12.5 mg Dexamethasone (Dexamethasone 4 Mg/Ml Inj) Confirm Administered Dose 4 mg .ROUTE .STK-MED ONE Stop: 05/25/22 12:22 Dexamethasone (Dexamethasone 4 Mg/Ml Inj) Confirm Administered Dose 4 mg .ROUTE .STK-MED ONE Stop: 05/25/22 12:32 Dexamethasone (Dexamethasone 4 Mg/Ml Inj) 4 mg IVP Q5M PRN PRN Reason: Nausea unrelieved by Reglan Stop: 05/26/22 16:24 Diphenhydramine HCl (Diphenhydramine 50 Mg/Ml Sdv 1ml) 12.5 mg IVP ONCE ONE Stop: 05/24/22 08:34 Last Admin: 05/24/22 09:34 Dose: 12.5 mg Diphenhydramine HCl (Diphenhydramine 50 Mg/Ml Sdv 1ml) Confirm Administered Dose 50 mg .ROUTE .STK-MED ONE Stop: 05/25/22 12:33 Ephedrine Sulfate (Ephedrine 50 Mg/Ml Inj) Confirm Administered Dose 50 mg .ROUTE .STK-MED ONE Stop: 05/25/22 13:32 Etomidate (Etomidate 2 Mg/Ml Inj Sdv 10 Ml) 10 mg IVP NOW ONE Stop: 05/23/22 16:27 Last Admin: 05/23/22 16:57 Dose: 10 mg Famotidine (Famotidine 20 Mg Tablet) 20 mg PO BID [facility] Last Admin: 05/25/22 09:42 Dose: 20 mg Famotidine (Famotidine 20 Mg/2 Ml Inj) 20 mg IVP ONCE PRN PRN Reason: HEARTBURN Fentanyl (Fentanyl 50 Mcg/Ml Inj 2ml) 100 mcg IVP ONCE ONE Stop: 05/23/22 16:27 Last Admin: 05/23/22 16:58 Dose: 100 mcg Fentanyl (Fentanyl 50 Mcg/Ml Inj 2ml) 50 mcg IVP Q10M PRN PRN Reason: Preop Pain Fentanyl (Fentanyl 50 Mcg/Ml Inj 2ml) 100 mcg IVP ONCE PRN PRN Reason: Per anesthesia for block Fentanyl (Fentanyl 50 Mcg/Ml Inj 2ml) Confirm Administered Dose 100 mcg .ROUTE .ST[place]OP [place]-MED ONE Stop: 05/25/22 12:19 Fentanyl (Fentanyl 50 Mcg/Ml Inj 2ml) 50 mcg IVP Q5M PRN PRN Reason: Pain level 6-10 PACU Phase I Stop: 05/26/22 16:24 Gentamicin Sulfate (Gentamicin 40 Mg/Ml Sdv 2 Ml) Confirm Administered Dose 160 mg .ROUTE .STK-MED ONE Stop: 05/25/22 12:42 Gentamicin Sulfate (Gentamicin 40 Mg/Ml Sdv 2 Ml) 160 mg IRRIGATION ONCE ONE Stop: 05/25/22 14:05 Last Admin: 05/25/22 14:12 Dose: 160 mg Hydromorphone HCl (Hydromorphone 1 Mg/Ml Inj 1 Ml) 0.4 mg IVP Q8H PRN PRN Reason: pain Last Admin: 05/24/22 09:34 Dose: 0.4 mg Hydromorphone HCl (Hydromorphone 1 Mg/Ml Inj 1 Ml) 0.5 mg IVP Q4H PRN PRN Reason: SEVERE pain Last Admin: 05/25/22 09:38 Dose: 0.5 mg Hydromorphone HCl (Hydromorphone 1 Mg/Ml Inj 1 Ml) 0.25 mg IVP Q10M PRN PRN Reason: Pain level 4-6 PACU Phase I Stop: 05/26/22 16:24 Hydromorphone HCl (Hydromorphone 1 Mg/Ml Inj 1 Ml) 0.5 mg IVP Q10M PRN PRN Reason: Pain level 7-10 PACU Phase I Stop: 05/26/22 16:24 Sodium Chloride (Sodium Chloride 0.9%) 1,000 mls @ 30 mls/hr IV .Q24H [facility] Stop: 05/26/22 11:59 Last Admin: 05/25/22 12:06 Dose: 30 mls/hr Acetaminophen (Acetaminophen) 1,000 mg in 100 mls @ 400 mls/hr IV [employer] ONE Stop: 05/25/22 12:04 Last Infusion: 05/25/22 13:07 Dose: Infused Cefazolin Sodium 2,000 mg/ (Sodium Chloride) 50 mls @ 100 mls/hr IV [employer] ONE; Protocol Stop: 05/25/22 12:19 Last Infusion: 05/25/22 14:04 Dose: Infused Lidocaine HCl (Xylocaine) Confirm Administered Dose 1 mls @ as directed .ROUTE .STK-MED ONE Stop: 05/25/22 12:18 Albumin Human (Albumin) Confirm Administered Dose 12.5 gm in 250 mls @ as directed .ROUTE .STK-MED ONE Stop: 05/25/22 14:04 Sodium Chloride (Sodium Chloride 0.9%) 500 mls @ 999 mls/hr IV .Q31M PRN PRN Reason: HYPOTENSION Sodium Chloride (Sodium Chloride 0.9%) 1,000 mls @ 80 mls/hr IV .[id number] [facility] Ipratropium [place] (Ipratropium 0.5 Mg/2.5 Ml Neb) 0.5 mg INHALATION ONCE PRN PRN Reason: WHEEZING Lidocaine HCl (Lidocaine 1% Inj 10 Ml (Per Ml)) 0.1 ml INTRADERMA PRN PRN PRN Reason: anesthetic prior to IV start Stop: 05/26/22 11:48 Meperidine HCl (Meperidine 50 Mg/Ml Inj) 12.5 mg IVP Q5M PRN PRN Reason: Shivering PACU Phase I Stop: 05/26/22 16:24 Metoclopramide HCl (Metoclopramide 5 Mg/Ml Sdv 2 Ml) 5 mg IVP Q6H PRN PRN Reason: NAUSEA AND VOMITING Last Admin: 05/25/22 11:20 Dose: 5 mg Metoclopramide HCl (Metoclopramide 5 Mg/Ml Sdv 2 Ml) 10 mg IVP ONCE PRN PRN Reason: N/V if zofran ineffective Metoclopramide HCl (Metoclopramide 5 Mg/Ml Sdv 2 Ml) 10 mg IVP Q5M PRN PRN Reason: Nausea unrelieved by Zofran Stop: 05/26/22 16:24 Midazolam HCl (Midazolam 1 Mg/Ml Inj 2 Ml) Confirm Administered Dose 6 mg .ROUTE .STK-MED ONE Stop: 05/23/22 16:28 Midazolam HCl (Midazolam 1 Mg/Ml Inj 2 Ml) 5 mg IVP ONCE ONE Stop: 05/23/22 16:37 Last Admin: 05/23/22 16:57 Dose: 5 mg Midazolam HCl (Midazolam 1 Mg/Ml Inj 2 Ml) 2 mg IVP Q5M PRN PRN Reason: Preop Anxiety Midazolam HCl (Midazolam 1 Mg/Ml Inj 5 Ml) 5 mg IVP ONCE PRN PRN Reason: Per anesthesia for block Morphine Sulfate (Morphine 4 Mg/Ml Sdv 1 Ml) 4 mg IVP Q4H PRN PRN Reason: SEVERE PAIN Last Admin: 05/24/22 08:22 Dose: 4 mg Morphine Sulfate (Morphine Ir 15 Mg Tablet) 15 mg PO Q6H PRN PRN Reason: pAIN Last Admin: 05/24/22 11:29 Dose: 15 mg Morphine Sulfate (Morphine 4 Mg/Ml Sdv 1 Ml) 2 mg IVP Q8H PRN PRN Reason: BREAKTHROUGH PAIN Last Admin: 05/25/22 11:07 Dose: 2 mg Morphine Sulfate (Morphine 4 Mg/Ml Sdv 1 Ml) 2 mg IVP Q2M PRN PRN Reason: Pain level 6-10 PACU Phase I Stop: 05/26/22 16:24 Morphine Sulfate (Morphine 4 Mg/Ml Sdv 1 Ml) 2 mg IVP Q5M PRN PRN Reason: Pain level 2-5 PACU Phase I Stop: 05/26/22 16:24 Morphine Sulfate (Morphine 4 Mg/Ml Sdv 1 Ml) 0 mg IVP Q5M PRN PRN Reason: Breakthrough Pain PACU PhaseII Ondansetron HCl (Ondansetron 2 Mg/Ml Sdv 2 Ml) 4 mg IVP Q6H PRN PRN Reason: NAUSEA AND VOMITING Last Admin: 05/23/22 21:41 Dose: 4 mg Ondansetron HCl (Ondansetron 2 Mg/Ml Sdv 2 Ml) Confirm Administered Dose 4 mg .ROUTE .STK-MED ONE Stop: 05/25/22 12:22 Ondansetron HCl (Ondansetron 2 Mg/Ml Sdv 2 Ml) 4 mg IVP Q15M PRN PRN Reason: Nausea/Vomiting PACU PHASE II Ondansetron HCl (Ondansetron 2 Mg/Ml Sdv 2 Ml) 4 mg IVP Q5M PRN PRN Reason: Nausea PACU Phase I Stop: 05/26/22 16:24 Phenylephrine HCl (Phenylephrine 10 Mg/Ml Sdv 1 Ml) Confirm Administered Dose 10 mg .ROUTE .STK-MED ONE Stop: 05/25/22 13:56 Promethazine HCl (Promethazine 25 Mg/Ml Sdv 1 Ml) 25 mg IM ONCE ONE Stop: 05/23/22 16:56 Last Admin: 05/23/22 17:06 Dose: 25 mg Propofol (Propofol 10 Mg/Ml Sdv 20 Ml) Confirm Administered Dose 200 mg .ROUTE .STK-MED ONE Stop: 05/25/22 12:19 Rocuronium [place] (Rocuronium 10 Mg/Ml Inj 5ml) Confirm Administered Dose 50 mg .ROUTE .STK-MED ONE Stop: 05/25/22 12:19 Rocuronium [place] (Rocuronium 10 Mg/Ml Inj 5ml) Confirm Administered Dose 50 mg .ROUTE .STK-MED ONE Stop: 05/25/22 14:35 Ropivacaine (Ropivacaine 0.5% Sdv 30 Ml) Confirm Administered Dose 150 mg .ROUTE .STK-MED ONE Stop: 05/25/22 12:32 Scopolamine (Scopolamine 1.5 Patch) 1 patch TRANSDERMA ONCE PRN PRN Reason: Nausea/ Vomiting Prophylaxis Succinylcholine Chloride (Succinylcholine 20 Mg/Ml Sdv 10ml) Confirm Administered Dose 200 mg .ROUTE .STK-MED ONE Stop: 05/25/22 12:39 Sugammadex Sodium (Sugammadex 200 Mg/2 Ml Sdv) Confirm Administered Dose 200 mg .ROUTE .STK-MED ONE Stop: 05/25/22 15:49 Tranexamic Acid (Tranexamic Acid 1,000 Mg/10ml Sdv) Confirm Administered Dose 1,000 mg .ROUTE .STK-MED ONE Stop: 05/25/22 12:42 Tranexamic Acid (Tranexamic Acid 1,000 Mg/10ml Sdv) 2,000 mg IRRIGATION ONCE ONE Stop: 05/25/22 14:05 Last Admin: 05/25/22 14:00 Dose: 2,000 mg Allergies ondansetron [From Zofran] Allergy (Verified 05/24/22 08:32) ADR-Itching claims she has no issues with this medication. Home Medications aspirin 81 mg chewable tablet 81 mg PO BEDTIME 07/22/19 [History Confirmed 05/23/22] famotidine 20 mg tablet (Pepcid) 20 mg PO BID 07/22/19 [History Confirmed 05/23/22] triamcinolone acetonide 0.1 % topical ointment 1 applic topical BID #30 grams 04/08/20 [Rx Confirmed 05/23/22] clotrimazole 1 % topical cream 1 applic topical BID #30 grams 06/06/21 [Rx Conf irmed 05/23/22] cetirizine 10 mg tablet 10 mg PO BEDTIME 05/23/22 [History Confirmed 05/23/22] cholecalciferol (vitamin D3) 50 mcg (2,000 unit) capsule (Vitamin D3) 50 mcg PO DAILY 05/23/22 [History Confirmed 05/23/22] fluoxetine 40 mg capsule 20 mg PO DAILY 05/23/22 [History Confirmed 05/23/22] Discharge Plan Discharge Patient Disposition: Home Condition: Stable Prescriptions: No Action aspirin 81 mg tablet,chewable 81 mg PO BEDTIME Hold Instructions: Resume on 08/09/19. famotidine [Pepcid] 20 mg tablet 20 mg PO BID triamcinolone acetonide 0.1 % ointment 1 applic topical BID Qty: 30 1RF Rx Instructions: Apply BID to affected areas on legs no more than 2 weeks/month for flares clotrimazole 1 % cream 1 applic topical BID Qty: 30 1RF Rx Instructions: Apply BID to areas around nose prn fluoxetine 40 mg capsule 20 mg PO DAILY cetirizine 10 mg Tablet 10 mg PO BEDTIME Vitamin D3 50 mcg (2,000 unit) Capsule 50 mcg PO DAILY Discharge Orders: Transfer Out of Facility (Order); Ordered 05/25/22 Ordered By: Tanner Belle Referrals: Oswaldo Streeter MD [Primary Care Provider] - Patient Instructions: Opioid Safety Transfer Attestations Time Spent in Transfer Care: greater than 30 min Quality Metrics Clinical Quality Measures [ No reported AMI, CVA or VTE this stay] Coding Level of Care Code Acute Code for Chg Fwd Diagnoses Status post replacement of right shoulder joint Z96.611 Injury of artery of right upper extremity S45.901A
[2022-05-25] MEDS: gabapentin 300 mg Capsule PO (18:41)
[2022-05-25] MEDS: heparin drip 25,000 UNIT/500 ML PREMIX 20 UNIT IV (18:42)
[2022-05-25 18:51] LABS: Platelet Count 174 10^3/cmm (130-400)
[2022-05-25] MEDS: heparin 5,000 unit/mL INJ 1 mL IV (18:52)
--- NOTE | 2022-05-26 10:16 | PC.OT ---
OT Eval Not Completed - Patient was transferred to [facility] before time of evaluation.
== END 2022-05-25 20:50 | disposition short-term general hospital (02) | DRG 483 ==
LOC: ER 16:40 → MEDSURG 18:35
PROVIDERS: Internal Medicine; Orthopaedic Surgery; Admitting Provider Student in an Organized Health Care Education/Training Program; Emergency Provider Family Medicine; PCP Family Medicine; Visit Provider Family Medicine
PROC: 0RRJ00Z Replacement of Right Shoulder Joint with Reverse Ball and Socket Synthetic Substitute, Open Approach (ICD-10-PCS; CPT 23472; principal; 2022-05-25 12:55)
DX: S42.291A Other displaced fracture of upper end of right humerus, initial encounter for closed fracture (principal); W01.0XXA Fall on same level from slipping, tripping and stumbling without subsequent striking against object, initial encounter; I48.91 Unspecified atrial fibrillation; Z79.82 Long term (current) use of aspirin; S14.3XXA Injury of brachial plexus, initial encounter; K21.9 Gastro-esophageal reflux disease without esophagitis; F32.A Depression, unspecified; Z85.828 Personal history of other malignant neoplasm of skin; I10 Essential (primary) hypertension; Z96.652 Presence of left artificial knee joint; S43.004A Unspecified dislocation of right shoulder joint, initial encounter; J40 Bronchitis, not specified as acute or chronic
CPT/HCPCS: 23575; 36415; 51702; 71045; 73030; 80048; 80053; 81003; 82607; 83036; 83735; 85025; 85049; 93005; 93306; 96372; 97167; 99285; C1713; C1776 ×2; J0131; J0330; J0690; J1100; J1170; J1200; J1580; J1644; J1650; J2250; J2270; J2370; J2405; J2550; J2704; J2765; J2795; J3010; J3490; J7030; L3670; P9045

== ENCOUNTER → 2022-06-07 09:09 | Outpatient (BNVA) | payer MEDICARE, OTHER, SELFPAY | PROVIDERS: PCP Family Medicine; Visit Provider Orthopaedic Surgery | DX: Z96.611 Presence of right artificial shoulder joint (principal); S45.901A Unspecified injury of unspecified blood vessel at shoulder and upper arm level, right arm, initial encounter; M54.12 Radiculopathy, cervical region; Y83.8 Other surgical procedures as the cause of abnormal reaction of the patient, or of later complication, without mention of misadventure at the time of the procedure; X58.XXXA Exposure to other specified factors, initial encounter | CPT/HCPCS: 99024 ==

== ENCOUNTER 2022-06-13 14:38 | Outpatient (RCR) | payer MEDICARE, OTHER, SELFPAY | END 2022-06-18 23:59 | disposition home or self-care (01) | LOC: SOT 14:38 | PROVIDERS: Visit Provider Orthopaedic Surgery | DX: Z96.611 Presence of right artificial shoulder joint (principal); S45.90 Unspecified injury of unspecified blood vessel at shoulder and upper arm level; Y99.9 Unspecified external cause status | CPT/HCPCS: 97110; 97140; 97167 ==

== ENCOUNTER → 2022-06-14 10:32 | Outpatient (BNVA) | payer MEDICARE, OTHER, SELFPAY | PROVIDERS: Visit Provider Family Medicine | DX: D64.9 Anemia, unspecified (principal); I10 Essential (primary) hypertension | CPT/HCPCS: 80048; 85025 ==

== ENCOUNTER 2022-06-19 06:00 | Outpatient (RCR) | payer MEDICARE, OTHER, SELFPAY | END 2022-07-19 23:59 | disposition home or self-care (01) | LOC: SOT 06:00 | PROVIDERS: Visit Provider Orthopaedic Surgery | DX: Z47.89 Encounter for other orthopedic aftercare (principal) | CPT/HCPCS: 97110; 97140 ==

== ENCOUNTER → 2022-06-21 10:29 | Outpatient (BNVA) | payer MEDICARE, OTHER, SELFPAY | PROVIDERS: Visit Provider Orthopaedic Surgery | DX: Z96.611 Presence of right artificial shoulder joint (principal) | CPT/HCPCS: 99024 ==

== ENCOUNTER → 2022-07-12 15:14 | Outpatient (BNVA) | payer MEDICARE, OTHER, SELFPAY | PROVIDERS: PCP Family Medicine; Visit Provider Nurse Practitioner Family | DX: Z96.611 Presence of right artificial shoulder joint (principal); S45.90 Unspecified injury of unspecified blood vessel at shoulder and upper arm level; X58.XXXD Exposure to other specified factors, subsequent encounter | CPT/HCPCS: 99213 ==

== ENCOUNTER 2022-07-20 06:00 | Outpatient (RCR) | payer MEDICARE, OTHER, SELFPAY | END 2022-08-18 23:59 | disposition home or self-care (01) | LOC: SOT 06:00 | PROVIDERS: PCP Family Medicine; Visit Provider Orthopaedic Surgery | DX: Z47.89 Encounter for other orthopedic aftercare (principal) | CPT/HCPCS: 97110; 97140 ==

== ENCOUNTER → 2022-07-25 11:15 | Outpatient (BNVA) | payer MEDICARE, OTHER, SELFPAY | PROVIDERS: PCP Family Medicine; Visit Provider Orthopaedic Surgery | DX: Z96.611 Presence of right artificial shoulder joint (principal) | CPT/HCPCS: 73030; 99024 ==

== ENCOUNTER 2022-08-19 06:00 | Outpatient (RCR) | payer MEDICARE, OTHER, SELFPAY | END 2022-09-18 23:59 | disposition home or self-care (01) | LOC: SOT 06:00 | PROVIDERS: PCP Family Medicine; Visit Provider Orthopaedic Surgery | DX: Z47.89 Encounter for other orthopedic aftercare (principal) | CPT/HCPCS: 97110; 97112; 97140 ==

== ENCOUNTER → 2022-08-28 09:07 | Outpatient (BNVA) | payer MEDICARE, OTHER, SELFPAY | PROVIDERS: PCP Family Medicine; Visit Provider Nurse Practitioner Family | DX: Z96.611 Presence of right artificial shoulder joint (principal) | CPT/HCPCS: 99213 ==

== ENCOUNTER 2022-09-19 06:00 | Outpatient (RCR) | payer MEDICARE, OTHER, SELFPAY | END 2022-10-19 23:59 | disposition home or self-care (01) | LOC: SOT 06:00 | PROVIDERS: PCP Family Medicine; Visit Provider Orthopaedic Surgery | DX: Z47.89 Encounter for other orthopedic aftercare (principal) | CPT/HCPCS: 97110; 97112; 97140 ==

== ENCOUNTER → 2022-09-21 11:08 | Outpatient (BNVA) | payer MEDICARE, OTHER, SELFPAY | PROVIDERS: PCP Family Medicine; Visit Provider Family Medicine | DX: M54.12 Radiculopathy, cervical region (principal); S14.3XXA Injury of brachial plexus, initial encounter; F32.9 Major depressive disorder, single episode, unspecified; R53.83 Other fatigue; X58.XXXA Exposure to other specified factors, initial encounter | CPT/HCPCS: 80053; 84443; 85025; 86140 ==

== ENCOUNTER → 2022-10-12 07:54 | Outpatient (BNVA) | payer MEDICARE, OTHER, SELFPAY | PROVIDERS: PCP Family Medicine; Visit Provider Podiatrist Foot & Ankle Surgery | DX: L60.0 Ingrowing nail (principal); L60.8 Other nail disorders | CPT/HCPCS: 99203 ==

== ENCOUNTER 2022-10-20 06:00 | Outpatient (RCR) | payer MEDICARE, OTHER, SELFPAY | END 2022-11-18 23:59 | disposition home or self-care (01) | LOC: SOT 06:00 | PROVIDERS: PCP Family Medicine; Visit Provider Orthopaedic Surgery | DX: Z47.1 Aftercare following joint replacement surgery (principal); Z96.611 Presence of right artificial shoulder joint | CPT/HCPCS: 97110; 97112; 97140 ==

== ENCOUNTER 2022-11-19 06:00 | Outpatient (RCR) | payer MEDICARE, OTHER, SELFPAY | END 2022-12-19 23:59 | disposition home or self-care (01) | LOC: SOT 06:00 | PROVIDERS: PCP Family Medicine; Visit Provider Orthopaedic Surgery | DX: S45.90 Unspecified injury of unspecified blood vessel at shoulder and upper arm level (principal); X58.XXXD Exposure to other specified factors, subsequent encounter; Z96.611 Presence of right artificial shoulder joint | CPT/HCPCS: 97110; 97112; 97140 ==

== ENCOUNTER → 2022-11-23 08:41 | Outpatient (BNVA) | payer MEDICARE, OTHER, SELFPAY | PROVIDERS: PCP Family Medicine; Visit Provider Podiatrist Foot & Ankle Surgery | DX: L60.3 Nail dystrophy (principal); L60.8 Other nail disorders | CPT/HCPCS: 11750 ==

== ENCOUNTER 2022-11-27 15:55 | Emergency (ER) | payer MEDICARE, OTHER, SELFPAY ==
--- NOTE | 2022-11-27 15:59 | XRR_ITS ---
PROCEDURE INFORMATION: Exam: XR Chest Exam date and time: 11/27/2022 4:05 PM Age: 77 years old Clinical indication: Cough and dyspnea; Prior surgery; Surgery date: 6+ months; Surgery type: RT shoulder; Patient HX: Syncope; Additional info: Dyspnea/cough TECHNIQUE: Imaging protocol: Radiologic exam of the chest. Views: 1 view. COMPARISON: CR (CHEST, ) 05/23/2022 6:11 PM FINDINGS: Lungs: Unremarkable. No consolidation. Pleural spaces: Unremarkable. No pleural effusion. No pneumothorax. Heart/Mediastinum: Unremarkable. No cardiomegaly. Bones/joints: There is a new right total reverse shoulder prosthesis. XR/XR chest 1V portable [id number] IMPRESSION: No acute findings.
[2022-11-27 16:01] VITALS: BP 160/89; PULSE 72; TEMP 36.6; O2SAT 100; BMI 23.6
--- NOTE | 2022-11-27 16:01 | ECG_ITS ---
[facility] Test Date: 2022-11-27 Pat Name: Kacy Arroyo Department: Room: Gender: Female [employer]iter: : 1945 Requested By: Andrews Liu Order Number: [id number] Syed MD: Jesus Barajas M.D. Measurements Intervals [place] Rate: 66 P: 69 ID: [id number] QRS: 41 QRSD: 77 T: 73 QT: 383 QTc: 403 Interpretive Statements SINUS RHYTHM POSSIBLE RIGHT VENTRICULAR CONDUCTION DELAY [RSR (QR) IN V1/V2] SEPTAL MYOCARDIAL INFARCTION , OF INDETERMINATE AGE [40+ ms Q WAVE IN V1/V2] Compared to ECG 05/23/2022 18:00:16 Ectopic atrial rhythm no longer present Myocardial infarct finding still present Electronically Signed On 11-27-2022 19:33:51 CDT by Jesus Barajas M.D. [id number]
[2022-11-27 16:11] LABS: Basophils % 0.3 %; Eosinophils # 0.1 10^3/uL (0.0-0.8); Eosinophils % 0.9 %; Hematocrit 40.1 % (36-47); Lymphocytes # 1.1 10^3/uL (0.8-4.8); Lymphocytes % 12.1 %; Mean Corpuscular HGB Conc 32.4 g/dL (30-55); Mean Corpuscular Hemoglobin 30.3 pg (27-33); Mean Corpuscular Volume 93.5 fl (85-98); Mean Platelet Volume 10.1 fL (7.4-10.4); Monocytes # 0.5 10^3/uL (0.2-0.9); Monocytes % 6.2 %; Neutrophils # 6.92 10^3/uL (1.8-7.7); Nucleated Red Blood Cells % 0 %; Platelet Count 225 10^3/cmm (157-399); Red Blood Count 4.29 10^6/uL (3.85-5.65); Red Cell Distribution Width 12.7 % (12.1-15.1); White Blood Count 8.66 10^3/uL (3.29-11.43)
--- NOTE | 2022-11-27 16:19 | ED_ITS ---
HPI - Fall General: Chief Complaint: Fall Stated Complaint: near syncope Time Seen by Provider: 11/27/22 15:58 Source: patient Mode of arrival: EMS History of Present Illness: 77-year-old female who presents to the emergency room after near syncopal episode at her doctor's office. She had gone to see her doctor after she had fa llen she had stumbled at home on a threshold of the door on the fall and she is complaining of some left hip pain she was weightbearing on it Dr. Streeter evaluated her, she seemed to be stable and he dismissed her from the clinic. She has a large left hip hematoma. She went to get up and became lightheaded and dizzy and eventually had to sit down and got very nauseous, blood pressure decreased to 60 systolic. It improved after a time. She never actually fell or hit her head this afternoon, she did fall at home she did not injure her head at that time. She is on apixaban. She denies any other new injuries. She is had multiple orthopedic injuries in the last year including a proximal humerus fracture with a shoulder dislocation on the right resulted in a shoulder arthroplasty there is a vascular damage there as well that was fixed. She also had a left hip fracture and had a left hip arthroplasty. At the time arrival here she is awake and alert with no symptoms. She denies having any chest symptoms this afternoon. Onset (ago): minute(s) Fall from: standing Place fall occurred: other (Doctors office) Loss of consciousness: None Associated symptoms-after fall: Reports lightheadedness and weakness; Denies abdominal pain, chest pain, confusion, difficulty walking, headache(s), hematuria, neck pain, numbness, short of breath or vertigo Review of Systems Const: Denies: fever(s) or chills Card: Reports: lightheadedness; Denies: chest pain Resp: Denies: dyspnea GI: Denies: abdominal pain : Denies: dysuria, urinary frequency, urinary urgency or hematuria Musc: Denies: neck pain or back pain Skin/Breast: Denies: rash Neuro: Denies: headache(s), difficulty walking, vertigo or confusion PFS ED PFSH: Medical History Atrial fibrillation Chronic GERD Depression Dyspepsia Dysphagia Epigastric pain History of basal cell carcinoma (BCC) of skin History of nonmelanoma skin cancer Hypertension Surgical History H/O colonoscopy 2013 History of carpal tunnel release History of colonoscopy with polypectomy (~08/2019) History of esophagogastroduodenoscopy (EGD) (~08/2019) History of esophagogastroduodenoscopy (EGD) (~2013) History of hysterectomy History of left knee replacement History of repair of rotator cuff Family History Father CAD (coronary artery disease) Brother CAD (coronary artery disease) Cancer 3 brothers-2 lung-1 small intestine Mother Hypertension Kidney stones Social History Smoking and tobacco status: never smoked Alcohol intake: never Physical Exam Const: GENERAL APPEARANCE: cooperative and comfortable ORIENT ATION/CONSCIOUSNESS: Yes awake, Yes oriented to person, Yes oriented to place and Yes oriented to time HENMT: COMMON NORMALS: normocephalic, atraumatic and hearing grossly normal bilaterally HEAD & SCALP: normocephalic and atraumatic Resp: COMMON NORMALS: normal respiratory effort, No retractions, No use of accessory muscles and clear to auscultation bilaterally AUSCULTATION: clear to auscultation bilaterally Cardio: COMMON NORMALS: regular rate, regular rhythm and No murmurs present (Cardio) RATE: regular rate RHYTHM: regular rhythm GI: COMMON NORMALS: Soft to palpation and No hepatosplenomegaly present AUSCULTATION: Yes normoactive bowel sounds PALPATION: Yes Soft to palpation, No Tenderness to palpation present (GI), No Guarding due to palpation present (GI) and Yes No hepatosplenomegaly present Extremity: COMMON NORMALS: capillary refill normal, no clubbing, cyanosis or edema, no calf tenderness and no pedal edema OTHER: Left hip hematoma tender to touch Neuro: SENSORIUM/ORIENTATION: Yes oriented to person, Yes oriented to place a nd Yes oriented to time Skin: COMMON NORMALS: no rashes or lesions noted GENERAL SKIN EXAM: no rashes or lesions noted Course Vital Signs: Vital signs: Vital Signs Temperature 97.8 F 11/27/22 16:01 Pulse Rate 72 11/27/22 16:01 Respiratory Rate 16 11/27/22 19:00 Blood Pressure 135/70 11/27/22 19:00 Pulse Oximetry 98 11/27/22 19:00 Oxygen Delivery Me thod Room Air 11/27/22 16:01 MDM - Fall Medical Decision Making Labs and imaging reviewed with patient no significant finding. Hemoglobin stable. Patient was able to get up and ambulate without any further symptoms. She feels stable to return home. Reviewed her medications she is on apixaban aspirin and Plavix. Contacted Dr. Victor to confirm. He related that vascular surgery had recommended triple therapy he had told her earlier today to hold the apixaban for now because of the left hip hematoma. This was included in the patient's discharge instructions Medical Records I reviewed the patient's medical records. Lab Data I reviewed the patient's lab results. 11/27/22 15:48 11/27/22 15:48 Radiology Impressions Chest X-Ray 11/27/22 15:59 IMPRESSION: No acute findings. Laboratory Results WBC 8.66 10^3/uL (3.29-11.43) 11/27/22 15:48 RBC 4.29 10^6/uL (3.85-5.65) 11/27/22 15:48 Hgb 13.00 g/dL (11.27-16.99) 11/27/22 15:48 Hct 40.1 % (36-47) 11/27/22 15:48 MCV 93.5 fl (85-98) 11/27/22 15:48 MCH 30.3 pg (27-33) 11/27/22 15:48 MCHC 32.4 g/dL (30-55) 11/27/22 15:48 RDW 12.7 % (12.1-15.1) 11/27/22 15:48 Plt Count 225 10^3/cmm (157-399) 11/27/22 15:48 MPV 10.1 fL (7.4-10.4) 11/27/22 15:48 Neut % (Auto) 80.0 % 11/27/22 15:48 Lymph % (Auto) 12.1 % 11/27/22 15:48 [place] % (Auto) 6.2 % 11/27/22 15:48 Eos % (Auto) 0.9 % 11/27/22 15:48 Baso % (Auto) 0.3 % 11/27/22 15:48 Neut # (Auto) 6.92 10^3/uL (1.8-7.7) 11/27/22 15:48 Lymph # (Auto) 1.1 10^3/uL (0.8-4.8) 11/27/22 15:48 [place] # (Auto) 0.5 10^3/uL (0.2-0.9) 11/27/22 15:48 Eos # (Auto) 0.1 10^3/uL (0.0-0.8) 11/27/22 15:48 Baso # (Auto) 0.0 10^3/uL (0.0-0.1) 11/27/22 15:48 Nucleated RBC % (auto) 0 % 11/27/22 15:48 Nucleated RBCs # 0.0 /100WBC 11/27/22 15:48 Sodium 136 mmol/L (136-145) 11/27/22 15:48 Potassium 4.2 mmol/L (3.5-5.1) 11/27/22 15:48 Chloride 99 mmol/L (98-107) 11/27/22 15:48 Carbon Dioxide 26 mmol/L (22-29) 11/27/22 15:48 Anion Gap 15.2 (5-19) 11/27/22 15:48 BUN 19 mg/dL (8-23) 11/27/22 15:48 Creatinine 1.1 mg/dL (0.5-0.9) H 11/27/22 15:48 GFR Calculation Not Reportable 11/27/22 15:48 Glucose 95 mg/dL (65-115) 11/27/22 15:48 Calculated Osmolality 284 mOsm/kg (285-295) L 11/27/22 15:48 Calcium 9.6 mg/dL (8.5-10.5) 11/27/22 15:48 Total Bilirubin 0.3 mg/dL (0.15-1.2) 11/27/22 15:48 AST 19 U/L (0-32) 11/27/22 15:48 ALT 14 U/L (0-33) 11/27/22 15:48 Alkaline Phosphatase 102 U/L (35-105) 11/27/22 15:48 Total Protein 7.5 g/dL (6.6-8.7) 11/27/22 15:48 Albumin 4.7 g/dL (3.5-5.2) 11/27/22 15:48 Globulin 2.8 g/dL (1.3-4.6) 11/27/22 15:48 All radiology interpretation(s) finalized by discharge Discharge Plan Discharge Patient Disposition: Home Clinical Impression: Orthostasis, Syncope, vasovagal, Hematoma of left hip Condition: Stable Prescriptions: Held Eliquis 5 mg tablet 5 mg PO BID Hold Instructions: Resume on 12/03/22. No Action aspirin 81 mg tablet,chewable 81 mg PO BEDTIME Hold Instructions: Resume on 08/09/19. famotidine [Pepcid] 20 mg tablet 20 mg PO BID bupropion HCl [Wellbutrin XL] 150 mg tablet extended release 24 hr 150 mg PO QAM Qty: 30 11RF silver sulfadiazine 1 % cream 1 applic topical BID 14 Days Qty: 50 2RF Rx Instructions: apply a 1.5 mm thickness doxycycline hyclate 100 mg capsule 100 mg PO BID 10 Days Qty: 20 0RF ferrous sulfate 325 mg (65 mg iron) tablet 325 mg PO BID Qty: 60 10RF clopidogrel 75 mg tablet 75 mg PO QAM fluoxetine 20 mg capsule 20 mg PO QAM cetirizine 10 mg Tablet 10 mg PO BEDTIME cholecalciferol (vitamin D3) [Vitamin D3] 50 mcg (2,000 unit) Capsule 50 mcg PO QAM Discharge Orders: Discharge ED (Routine); Ordered 11/27/22 Ordered By: Andrews Guevara Referrals: Oswaldo Streeter MD [Primary Care Provider] - Discharge Diet: Usual diet Discharge Activity: Limit activity as instructed Patient Instructions: Opioid Safety, Pain Management Activity Restrictions/Additional Instructions: Increase fluid intake. I discussed her case with Dr. Victor who recommends that you hold the apixaban because of the hematoma on your left hip. Contact his office tomorrow to give them and give them an update on how you are feeling. If you have any worsening or changes symptoms return to the emergency room. Coding Level of Care Code ED Spring Tacker for [place] Mend[place]
[2022-11-27] MEDS: sodium chloride 0.9% 1,000 ML 999 ML IV (16:23)
[2022-11-27 16:35] LABS: Alanine Aminotransferase 14 U/L (0-33); Albumin Level 4.7 g/dL (3.5-5.2); Alkaline Phosphatase 102 U/L (35-105); Anion Gap 15.2 (5-19); Aspartate Amino Transferase 19 U/L (0-32); Blood Urea Nitrogen 19 mg/dL (8-23); Calcium 9.6 mg/dL (8.5-10.5); Carbon Dioxide 26 mmol/L (22-29); Chloride 99 mmol/L (98-107); Globulin 2.8 g/dL (1.3-4.6); Glucose 95 mg/dL (65-115); Osmolality Calculated 284 mOsm/kg (285-295); Potassium 4.2 mmol/L (3.5-5.1); Sodium 136 mmol/L (136-145); Total Bilirubin 0.3 mg/dL (0.15-1.2); Total Protein 7.5 g/dL (6.6-8.7)
[2022-11-27 19:00] VITALS: BP 135/70; RESP 16; O2SAT 98
== END 2022-11-27 19:03 | disposition home or self-care (01) ==
PROVIDERS: Emergency Provider Family Medicine; PCP Family Medicine
DX: I95.1 Orthostatic hypotension (principal); S70.02XA Contusion of left hip, initial encounter; Z79.02 Long term (current) use of antithrombotics/antiplatelets; Z79.82 Long term (current) use of aspirin; I10 Essential (primary) hypertension; W01.0XXA Fall on same level from slipping, tripping and stumbling without subsequent striking against object, initial encounter; Y92.009 Unspecified place in unspecified non-institutional (private) residence as the place of occurrence of the external cause
CPT/HCPCS: 71045; 80053; 85025; 93005; 96360; 96361; 99285; J7030

== ENCOUNTER 2022-12-07 10:40 | Outpatient (CLI) | payer MEDICARE, OTHER, SELFPAY ==
--- NOTE | 2022-12-07 10:50 | XRR_ITS ---
PROCEDURE INFORMATION: Exam: XR Left Hip Exam date and time: 12/07/2022 11:01 AM Age: 77 years old Clinical indication: Injury or trauma; Fall; Blunt trauma (contusions or hematomas); Left; Hip; Patient HX: Patient fell 1 week ago and has pain in the right bottom TECHNIQUE: Imaging protocol: Radiologic exam of the left hip. Views: 2 or 3 views hip with pelvis when performed. COMPARISON: CR (LOW EXM, ) 07/25/2021 12:36 AM FINDINGS: Bones/joints: Postop surgical changes left femur. No evidence of acute fracture or dislocation Soft tissues: Unremarkable. XR/XR hip LT 2-3V wo/w pel* [id number] IMPRESSION: Postop surgical change of the left femur. No evidence of fracture or dislocation
== END 2022-12-07 10:41 | disposition home or self-care (01) ==
LOC: RAD 10:43
PROVIDERS: PCP Family Medicine; Visit Provider Family Medicine
DX: M25.552 Pain in left hip (principal); L60.0 Ingrowing nail; L60.8 Other nail disorders; L60.3 Nail dystrophy
CPT/HCPCS: 73502; 99213

== ENCOUNTER 2022-12-15 09:04 | Outpatient (CLI) | payer MEDICARE, OTHER, SELFPAY ==
--- NOTE | 2022-12-15 09:08 | MM_ITS ---
WS: [id number] VIEWS: MLO and CC views both breasts. 3D digital tomosynthesis is also included in this exam. Comparison made with prior exam of 09/11/2007, 01/18/2009, 02/24/2010, 03/20/2011, 05/19/2015, 04/13/2017, 10/17/2021.. Findings: There was no sign of mass, architectural distortion or suspicious calcification in either breast. The breasts are heterogeneously dense which may obscure small masses Impression: MM/[place] [id number] BI-RADS: 2-Benign finding. FOLLOW-UP: 1 Year Follow-up This mammogram was also analyzed by the Computer Aided Detection System [employer] Imag e Director Business [employer].
== END 2022-12-15 09:05 | disposition home or self-care (01) ==
LOC: RAD 09:04
PROVIDERS: PCP Family Medicine; Visit Provider Family Medicine
DX: Z12.31 Encounter for screening mammogram for malignant neoplasm of breast (principal)
CPT/HCPCS: 77063; 77067

== ENCOUNTER 2022-12-20 06:00 | Outpatient (RCR) | payer MEDICARE, OTHER, SELFPAY | END 2023-01-18 23:59 | disposition home or self-care (01) | LOC: SOT 06:00 | PROVIDERS: PCP Family Medicine; Visit Provider Orthopaedic Surgery | DX: Z47.89 Encounter for other orthopedic aftercare (principal) | CPT/HCPCS: 97110; 97112; 97140 ==

== ENCOUNTER 2023-01-16 10:32 | Outpatient (RCR) | payer MEDICARE, OTHER, SELFPAY | END 2023-01-18 23:59 | disposition home or self-care (01) | LOC: SPT 10:32 | PROVIDERS: PCP Family Medicine; Visit Provider Family Medicine | DX: R26.81 Unsteadiness on feet (principal) | CPT/HCPCS: 97110; 97162 ==

== ENCOUNTER 2023-01-19 06:00 | Outpatient (RCR) | payer MEDICARE, OTHER, SELFPAY | END 2023-02-18 23:59 | disposition home or self-care (01) | LOC: SOT 06:00 | PROVIDERS: PCP Family Medicine; Visit Provider Orthopaedic Surgery | DX: R26.81 Unsteadiness on feet (principal) | CPT/HCPCS: 97110; 97140 ==

== ENCOUNTER 2023-01-19 06:00 | Outpatient (RCR) | payer MEDICARE, OTHER, SELFPAY | END 2023-02-18 23:59 | disposition home or self-care (01) | LOC: SPT 06:00 | PROVIDERS: PCP Family Medicine; Visit Provider Family Medicine | DX: R26.81 Unsteadiness on feet (principal) | CPT/HCPCS: 97110; 97112 ==

== ENCOUNTER 2023-02-19 06:00 | Outpatient (RCR) | payer MEDICARE, OTHER, SELFPAY | END 2023-03-21 23:59 | disposition home or self-care (01) | LOC: SOT 06:00 | PROVIDERS: PCP Family Medicine; Visit Provider Orthopaedic Surgery | DX: Z47.89 Encounter for other orthopedic aftercare (principal) | CPT/HCPCS: 97140 ==

== ENCOUNTER 2023-02-19 06:00 | Outpatient (RCR) | payer MEDICARE, OTHER, SELFPAY | END 2023-03-21 23:59 | disposition home or self-care (01) | LOC: SPT 06:00 | PROVIDERS: PCP Family Medicine; Visit Provider Family Medicine | DX: R26.81 Unsteadiness on feet (principal) | CPT/HCPCS: 97110; 97112 ==

== ENCOUNTER → 2023-03-27 11:19 | Outpatient (BNVA) | payer MEDICARE, OTHER, SELFPAY | PROVIDERS: PCP Family Medicine; Visit Provider Family Medicine | DX: F32.9 Major depressive disorder, single episode, unspecified (principal); R26.81 Unsteadiness on feet; I10 Essential (primary) hypertension | CPT/HCPCS: 80048; 85025 ==

== ENCOUNTER 2023-05-04 09:50 | Outpatient (RCR) | payer MEDICARE, OTHER, SELFPAY | END 2023-05-20 23:59 | disposition home or self-care (01) | LOC: SOT 09:50 | PROVIDERS: PCP Family Medicine; Visit Provider Surgery Surgery of the Hand | DX: S14.3XXD Injury of brachial plexus, subsequent encounter (principal); X58.XXXD Exposure to other specified factors, subsequent encounter | CPT/HCPCS: 97022; 97110; 97140 ==

== ENCOUNTER 2023-05-21 06:00 | Outpatient (RCR) | payer MEDICARE, OTHER, SELFPAY | END 2023-06-19 23:59 | disposition home or self-care (01) | LOC: SOT 06:00 | PROVIDERS: PCP Family Medicine; Visit Provider Surgery Surgery of the Hand | DX: S14.3XXD Injury of brachial plexus, subsequent encounter (principal); X58.XXXD Exposure to other specified factors, subsequent encounter | CPT/HCPCS: 97022; 97110; 97140 ==

== ENCOUNTER 2023-07-19 06:00 | Outpatient (RCR) | payer MEDICARE, OTHER, SELFPAY | END 2023-07-20 23:59 | disposition home or self-care (01) | LOC: SOT 06:00 | PROVIDERS: PCP Family Medicine; Visit Provider Surgery Surgery of the Hand | DX: S14.3XXD Injury of brachial plexus, subsequent encounter (principal); X58.XXXD Exposure to other specified factors, subsequent encounter | CPT/HCPCS: 97022; 97110; 97140 ==

== ENCOUNTER 2023-07-21 06:00 | Outpatient (RCR) | payer MEDICARE, OTHER, SELFPAY | END 2023-08-19 23:59 | disposition home or self-care (01) | LOC: SOT 06:00 | PROVIDERS: PCP Family Medicine; Visit Provider Surgery Surgery of the Hand | DX: M21.331 Wrist drop, right wrist (principal) | CPT/HCPCS: 97022; 97110; 97140; 97530 ==

== ENCOUNTER 2023-07-24 08:32 | Outpatient (RCR) | payer MEDICARE, OTHER, SELFPAY | END 2023-08-19 23:59 | disposition home or self-care (01) | LOC: SPT 08:32 | PROVIDERS: PCP Family Medicine; Visit Provider Orthopaedic Surgery | DX: M25.511 Pain in right shoulder (principal) | CPT/HCPCS: 97110; 97161 ==

== ENCOUNTER 2023-08-06 20:00 | Outpatient (CLI) | payer MEDICARE, OTHER, SELFPAY | END 2023-08-06 20:01 | disposition home or self-care (01) | LOC: SLEEP 08-07 05:08 | PROVIDERS: PCP Family Medicine; Visit Provider Family Medicine | DX: G47.33 Obstructive sleep apnea (adult) (pediatric) (principal); R10.13 Epigastric pain; R40.0 Somnolence; Z99.89 Dependence on other enabling machines and devices | CPT/HCPCS: 95810 ==

== ENCOUNTER 2023-08-20 06:00 | Outpatient (RCR) | payer MEDICARE, OTHER, SELFPAY | END 2023-09-19 23:59 | disposition home or self-care (01) | LOC: SPT 06:00 | PROVIDERS: PCP Family Medicine; Visit Provider Orthopaedic Surgery | DX: M25.511 Pain in right shoulder (principal) | CPT/HCPCS: 97110 ==

== ENCOUNTER 2023-08-20 06:00 | Outpatient (RCR) | payer MEDICARE, OTHER, SELFPAY | END 2023-09-19 23:59 | disposition home or self-care (01) | LOC: SOT 06:00 | PROVIDERS: PCP Family Medicine; Visit Provider Surgery Surgery of the Hand | DX: S14.3XXD Injury of brachial plexus, subsequent encounter (principal); X58.XXXD Exposure to other specified factors, subsequent encounter; G58.8 Other specified mononeuropathies | CPT/HCPCS: 97022; 97110; 97140 ==

== ENCOUNTER 2023-09-20 06:00 | Outpatient (RCR) | payer MEDICARE, OTHER, SELFPAY | END 2023-10-20 23:59 | disposition home or self-care (01) | LOC: SOT 06:00 | PROVIDERS: PCP Family Medicine; Visit Provider Surgery Surgery of the Hand | DX: M21.331 Wrist drop, right wrist (principal) | CPT/HCPCS: 97022; 97110; 97140; 97760; L3923 ==

== ENCOUNTER 2023-09-20 06:00 | Outpatient (RCR) | payer MEDICARE, OTHER, SELFPAY | END 2023-10-20 23:59 | disposition home or self-care (01) | LOC: SPT 06:00 | PROVIDERS: PCP Family Medicine; Visit Provider Orthopaedic Surgery | DX: M25.511 Pain in right shoulder (principal) | CPT/HCPCS: 97110 ==

== ENCOUNTER → 2023-09-25 09:35 | Outpatient (BNVA) | payer MEDICARE, OTHER, SELFPAY | PROVIDERS: PCP Family Medicine; Visit Provider Family Medicine | DX: I10 Essential (primary) hypertension (principal); F32.9 Major depressive disorder, single episode, unspecified; S14.3XXA Injury of brachial plexus, initial encounter; G47.33 Obstructive sleep apnea (adult) (pediatric); R30.0 Dysuria | CPT/HCPCS: 80053; 81000; 85025; 87077; 87086; 87184 ==

== ENCOUNTER 2023-10-21 06:00 | Outpatient (RCR) | payer MEDICARE, OTHER, SELFPAY | END 2023-11-19 23:59 | disposition home or self-care (01) | LOC: SOT 06:00 | PROVIDERS: PCP Family Medicine; Visit Provider Surgery Surgery of the Hand | DX: S14.3XXD Injury of brachial plexus, subsequent encounter (principal); X58.XXXD Exposure to other specified factors, subsequent encounter | CPT/HCPCS: 97140 ==

== ENCOUNTER 2023-10-21 06:00 | Outpatient (RCR) | payer MEDICARE, OTHER, SELFPAY | END 2023-11-19 23:59 | disposition home or self-care (01) | LOC: SPT 06:00 | PROVIDERS: PCP Family Medicine; Visit Provider Orthopaedic Surgery | DX: M25.511 Pain in right shoulder (principal) | CPT/HCPCS: 97110 ==

== ENCOUNTER 2023-11-20 06:00 | Outpatient (RCR) | payer MEDICARE, OTHER, SELFPAY | END 2023-12-20 23:59 | disposition home or self-care (01) | LOC: SOT 06:00 | PROVIDERS: PCP Family Medicine; Visit Provider Surgery Surgery of the Hand | DX: G56.31 Lesion of radial nerve, right upper limb (principal); S14.3XXD Injury of brachial plexus, subsequent encounter; X58.XXXD Exposure to other specified factors, subsequent encounter | CPT/HCPCS: 97022; 97140 ==

== ENCOUNTER 2023-11-20 06:00 | Outpatient (RCR) | payer MEDICARE, OTHER, SELFPAY | END 2023-11-22 23:59 | disposition home or self-care (01) | LOC: SPT 06:00 | PROVIDERS: PCP Family Medicine; Visit Provider Orthopaedic Surgery | DX: M25.511 Pain in right shoulder (principal) | CPT/HCPCS: 97110 ==

== ENCOUNTER 2023-12-21 06:00 | Outpatient (RCR) | payer MEDICARE, OTHER, SELFPAY | END 2024-01-19 23:59 | disposition home or self-care (01) | LOC: SOT 06:00 | PROVIDERS: PCP Family Medicine; Visit Provider Surgery Surgery of the Hand | DX: M21.331 Wrist drop, right wrist (principal) | CPT/HCPCS: 97022; 97140 ==

== ENCOUNTER 2024-01-20 06:00 | Outpatient (RCR) | payer MEDICARE, OTHER, SELFPAY | END 2024-02-19 23:59 | disposition home or self-care (01) | LOC: SOT 06:00 | PROVIDERS: PCP Family Medicine; Visit Provider Surgery Surgery of the Hand | DX: G56.31 Lesion of radial nerve, right upper limb (principal); S14.3XXD Injury of brachial plexus, subsequent encounter; X58.XXXD Exposure to other specified factors, subsequent encounter | CPT/HCPCS: 97140 ==

== ENCOUNTER 2024-03-07 16:33 | Outpatient (RCR) | payer MEDICARE, OTHER, SELFPAY | END 2024-03-21 23:59 | disposition home or self-care (01) | LOC: SOT 16:33 | PROVIDERS: PCP Family Medicine; Visit Provider Surgery Surgery of the Hand | DX: G56.31 Lesion of radial nerve, right upper limb (principal); S14.3XXD Injury of brachial plexus, subsequent encounter; X58.XXXD Exposure to other specified factors, subsequent encounter | CPT/HCPCS: 97022; 97140 ==

== ENCOUNTER → 2024-03-12 09:51 | Outpatient (BNVA) | payer MEDICARE, OTHER, SELFPAY | PROVIDERS: PCP Family Medicine; Visit Provider Family Medicine | DX: S45.901A Unspecified injury of unspecified blood vessel at shoulder and upper arm level, right arm, initial encounter (principal); F32.9 Major depressive disorder, single episode, unspecified; I10 Essential (primary) hypertension; X58.XXXA Exposure to other specified factors, initial encounter | CPT/HCPCS: 80053; 85025 ==

== ENCOUNTER 2024-03-28 15:01 | Outpatient (CLI) | payer MEDICARE, OTHER, SELFPAY ==
--- NOTE | 2024-03-28 15:45 | USCV_ITS ---
Kacy Arroyo Age: 79 Gender: F : 1945 Exam Date: 03/28/2024 15:22 Ordering Phys: Oswaldo Streeter MD Technologist: [employer] [place]am [place] [facility] [place] Indication: blurred vision Risk Factors: Previous Vascular Surgery: Right Brachial BP: / Left Brachial BP: / Right Left Velocity (cm/s) Spectral Plaque Velocity (cm/s) Spectral Plaque Syst/Diast Broadening Syst/Diast Broadening 126.10/28.10 Prox CCA 118.00/ 19.90 97.80/ 23.70 Mid CCA 99.90 / 24.80 78.20/ 19.40 Distal CCA 79.60 / 20.20 41.10/ 9.90 Prox ICA 31.30 / 7.80 42.50/ 11.10 Mid ICA 50.10 / 15.80 31.90/ 9.00 Distal ICA 73.10 / 27.90 111.20 ECA 96.20 0.50 ICA/CCA 0.40 Antegrade Vertebral Antegrade 34.90/ 10.60 cm/s 31.30/ 8.10 cm/s Tri Subclavian Tri 62.50 117.9 0 FINDINGS Comparison:. 12/24/18 No significant elevation of systolic or diastolic velocities. Waveforms are normal. No significant amount of calcified plaque or intimal thickening identified. CONCLUSIONS Normal carotid doppler ultrasound. Dr. Yany Kerns DO (Electronically Signed) Final Date: 28 March 2024 16:13 S
== END 2024-03-28 15:02 | disposition home or self-care (01) ==
PROVIDERS: PCP Family Medicine; Visit Provider Family Medicine
DX: G45.9 Transient cerebral ischemic attack, unspecified (principal)
CPT/HCPCS: 93880

== ENCOUNTER → 2024-09-09 09:28 | Outpatient (BNVA) | payer MEDICARE, OTHER, SELFPAY | PROVIDERS: PCP Family Medicine; Visit Provider Family Medicine | DX: I10 Essential (primary) hypertension (principal); F32.9 Major depressive disorder, single episode, unspecified; S45.901A Unspecified injury of unspecified blood vessel at shoulder and upper arm level, right arm, initial encounter; X58.XXXA Exposure to other specified factors, initial encounter | CPT/HCPCS: 80053; 85025 ==